=== PATIENT | male | born 1965 | race Caucasian/White ===

== ENCOUNTER 2016-11-02 04:51 | Observation (INO) | payer BC ==
[2016-11-02] MEDS ORDERED: NS 0.9% 1000 ML* 1,000 ML IV ONE ×2 (05:03→08:12)
[2016-11-02] MEDS ORDERED: Diltiazem IV* 5 MG/ML 5 ML VIAL (for loading dose/IV Push) (25 MG) IV PUSH ONE (05:03)
[2016-11-02 05:32] LABS: Hematocrit 49 % (42-52); Hemoglobin 16.5 g/dl (14.0-18.0); Mean Corpuscular HGB Conc 34 g/dl (31-36); Mean Corpuscular Hemoglobin 30 pg (27-31); Mean Corpuscular Volume 89 fL (80-94); Mean Platelet Volume 8 um3 (7.4-10.4); Red Blood Count 5.48 10^6/ul (4.0-5.4); Red Cell Distribution Width 14 % (10.5-15); White Blood Count 7.4 10^3/ul (3.5-10.8)
--- NOTE | 2016-11-02 05:46 | ED ---
denita Carmichael Timothy, scribed for Gerardo Nunez MD on 11/02/16 at 0511 . Palpitations / Dysrhythmia - HPI Summary HPI Summary: Hu Coates is a 51 yo male presenting to [facility] with irregular heart beat since 0400 this am. He has a Hx of Afib x2, most recently October 05 2014, before that in 2007. He states he does not know what caused his Sx. He is not in any current pain. His MHx includes paroxysmal Afib, CAD, HLD, HTN, GERD, hiatal hernia, arthritis, tendonitis. His PCP is Dr. Chapman in [place]. - History of Current Complaint Time Seen by Provider: 11/02/16 05:06 Hx Obtained From: Patient Onset/Duration: Sudden Onset, Lasting Minutes, Still Present Timing: Constant Severity Initially: Moderate Severity Currently: Moderate Character: Fast, Irregular Aggravating: Rest - Allergy/Home Medications Allergies/Adverse Reactions: Allergies Allergy/AdvReac Type Severity Reaction Status Date / Time ENVIRONMENTAL/SEASONAL Allergy Mild Sneezing Uncoded 11/02/16 05:34 HAYFEVER PMH/Surg Hx/FS Hx/Imm Hx Cardiovascular History: Reports: Hx Coronary Artery Disease - CHOLESTEROL CONTROL WITH MEDICATION, Hx Hypercholesterolemia, Hx Hypertension - ON MEDS Denies: Hx Angina, Hx Pacemaker/ICD Respiratory History: Denies: Hx Asthma, Hx Chronic Obstructive Pulmonary Disease (COPD) GI History: Reports: Hx Gastroesophageal Reflux Disease - HX BEFORE SURGERY FOR HIATAL HERNIA, Hx Hiatal Hernia - HX OF Musculoskeletal History: Reports: Hx Arthritis - RIGHT THUMB, Hx Tendonitis - HX OF RIGHT ELBOW - REPAIRED WITH SURGERY Sensory History: Reports: Hx Contacts or Glasses - DRIVING GLASSES Denies: Hx Hearing Aid Opthamlomology History: Reports: Hx Contacts or Glasses - DRIVING GLASSES Psychiatric History: Denies: Hx Panic Disorder - Surgical History Surgery Procedure, Year, and Place: 1997 HIATAL HERNIA REPAIR, [id number] RIGHT ELBOW TENNIS ELBOW SURGERY, [id number] LEFT KNEE ACL RECONSTRUCTION, [facility], rt thumb joint fusion 2012 and hardware removal in 2013 Hx Anesthesia Reactions: No Infectious Disease History: No Infectious Disease History: Denies: Traveled Outside the [place] in Last 30 Days - Family History Known Family History: Negative: Cardiac Disease, Hypertension, Diabetes - Social History Alcohol Use: Rare Substance Use Type: Reports: None Smoking Status (MU): Former Smoker Type: Cigarettes Amount Used/How Often: 1/2 PACK/DAY Length of Time of Smoking/Using Tobacco: 10 YEARS Have You Smoked in the Last Year: Yes Review of Systems Constitutional: Negative Eyes: Negative ENT: Negative Positive: Palpitations Respiratory: Negative Gastrointestinal: Negative Genitourinary: Negative Musculoskeletal: Negative Skin: Negative Neurological: Negative Psychological: Normal All Other Systems Reviewed And Are Negative: Yes Physical Exam Triage Information Reviewed: Yes Vital Signs On Initial Exam: Initial Vitals Temp Pulse Resp BP Pulse Ox 98.9 F 151 20 163/115 98 11/02/16 04:58 11/02/16 04:58 11/02/16 04:58 11/02/16 04:58 11/02/16 04:58 Vital Signs Reviewed: Yes Appearance: Positive: Well-Appearing - anxious Skin: Positive: Warm Head/Face: Positive: Normal Head/Face Inspection Eyes: Positive: JAYLEN ENT: Positive: Hearing grossly normal Neck: Positive: Supple Respiratory/Lung Sounds: Positive: Breath Sounds Present Cardiovascular: Positive: IRR, Tachycardia Abdomen Description: Positive: Nontender, Soft Bowel Sounds: Positive: Present Musculoskeletal: Positive: Strength/ROM Intact. Negative: Edema Left, Edema Right Neurological: Positive: Sensory/Motor Intact, Alert, Oriented to Person Place, Time, Normal Gait Diagnostics - Vital Signs Vital Signs Temp Pulse Resp BP Pulse Ox 11/02/16 04:58 98.9 F 151 20 163/115 98 - Laboratory Lab Results: Lab Results 11/02/16 Range/Units 05:07 WBC 7.4 (3.5-10.8) 10^3/ul RBC 5.48 H (4.0-5.4) 10^6/ul Hgb 16.5 (14.0-18.0) g/dl Hct 49 (42-52) % MCV 89 (80-94) fL MCH 30 (27-31) pg MCHC 34 (31-36) g/dl RDW 14 (10.5-15) % Plt Count 166 (150-450) 10^3/ul MPV 8 (7.4-10.4) um3 Neut % (Auto) 57.9 (38-83) % Lymph % (Auto) 29.0 (25-47) % Winston % (Auto) 9.1 H (1-9) % Eos % (Auto) 3.4 (0-6) % Baso % (Auto) 0.6 (0-2) % Absolute Neuts (auto) 4.3 (1.5-7.7) 10^3/ul Absolute Lymphs (auto) 2.1 (1.0-4.8) 10^3/ul Absolute Monos (auto) 0.7 (0-0.8) 10^3/ul Absolute Eos (auto) 0.3 (0-0.6) 10^3/ul Absolute Basos (auto) 0 (0-0.2) 10^3/ul Absolute Nucleated RBC 0 10^3/ul Nucleated RBC % 0 Result Diagrams: 11/02/16 05:07 11/02/16 05:07 Lab Statement: Any lab studies that have been ordered have been reviewed, and results considered in the medical decision making process. - EKG 0500 Cardiac Rate: Tachycardia - 160 BPM EKG Interpretation: Afib @ 160 BPM, rapid response Re-Evaluation - Re-Evaluation First Eval Re-Evaluation Time: 05:20 Change: Improved Course/Dx - Course Assessment/Plan: Hu Coates is a 51 yo male presenting to [facility] with palpiations since 0400 this am with a Hx of Afib. In the ED he received IV fluids and diltiazem. His EKG showed Afib with rapid response. After clinical examination and review of his lab work, he will be signed out to Dr. Edwards pending further evaluation and work up. - Diagnoses Provider Diagnoses: Atrial fibrillation with RVR - Physician Notifications Instructed by Provider To: Admit As Inpatient Discharge - Discharge Plan Condition: Stable Disposition: ADMITTED TO [facility] Discharge Disposition Comment: signed out to Dr. Edwards for further evaluation The documentation as recorded by the denita cortez Timothy accurately reflects the service I personally performed and the decisions made by , Gerardo Nunez MD.
[2016-11-02 05:48] LABS: Albumin 4.3 g/dL (3.2-5.2); BUN/Creatinine Ratio 24.1 (8-20); Calcium 9.4 mg/dL (8.6-10.3); EGFR African American 93.1 (>60); EGFR Non-African American 72.4 (>60); Globulin 3.3 g/dL (2-4); Total Bilirubin 0.6 mg/dL (0.2-1.0); Total Protein 7.6 g/dL (6.4-8.9)
[2016-11-02 06:09] LABS: TSH (Thyroid Stimulating Horm) 1.96 mcIU/mL (0.34-5.60)
[2016-11-02 06:20] LABS: Potassium 4.3 mmol/L (3.5-5.0)
[2016-11-02 06:34] LABS: Magnesium 2.2 mg/dL (1.9-2.7)
[2016-11-02] MEDS ORDERED: Diltiazem IV VIAL* 125 MG in D5W 100 ML BAG* 100 ML IV ONE (08:11)
[2016-11-02] MEDS ORDERED: Metoprolol Tartrate TAB* 25 MG PO SCH (09:00)
--- NOTE | 2016-11-02 09:02 | RAD ---
HISTORY: Atrial fibrillation COMPARISONS: October 05, 2014 VIEWS:1: Single frontal portable view of the chest at 8:30 AM FINDINGS: LINES AND TUBES: None. CARDIOMEDIASTINAL SILHOUETTE: The cardiomediastinal silhouette is normal for portable technique. PLEURA: The costophrenic angles are sharp. No pleural abnormalities are noted. LUNG PARENCHYMA: The lungs are clear. ABDOMEN: The upper abdomen is clear. There is no subphrenic gas. BONES AND SOFT TISSUES: No bone or soft tissue abnormalities are noted. IMPRESSION: NO ACTIVE CARDIOPULMONARY DISEASE.
--- NOTE | 2016-11-02 11:05 | ED ---
Nohemy Carmichael Matthew, scribed for Dinesh Edwards MD on 11/02/16 at 0721 . Progress - Progress Note Progress Note: The patient is a sign out from Dr. 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 The patient gets palpitations intermittently and has had three episodes that required conversion. He's currently not taking blood thinners. No Hx of COPD. The patient is a former smoker. The patient is in stable condition and will be admitted by Dr. Marmolejo [place] [facility] VITAL SIGNS: Reviewed. GENERAL: Patient is a well developed and nourished male who is lying comfortable in the stretcher. Patient is not in any acute respiratory distress. HEAD AND FACE: No signs of trauma. No ecchymosis, hematomas or skull depressions. No sinus tenderness. EYES: PERRLA, EOMI x 2, No injected conjunctiva, no nystagmus. EARS: Hearing grossly intact. Ear canals and tympanic membranes are within normal limits. MOUTH: Oropharynx within normal limits. NECK: Supple, trachea is midline, no adenopathy, no JVD, no carotid bruit, no c- spine tenderness, neck with full ROM. CHEST: Symmetric, no tenderness at palpation LUNGS: Clear to auscultation bilaterally. No wheezing or crackles. CVS: Irregular rate and rhythm, S1 and S2 present, no murmurs or gallops appreciated. ABDOMEN: Soft, non-tender. No signs of distention. No rebound no guarding, and no masses palpated. Bowel sounds are normal. EXTREMITIES: FROM in all major joints, no edema, no cyanosis or clubbing. NEURO: Alert and oriented x 3. No acute neurological deficits. Speech is normal and follows commands. SKIN: Dry and warm - Results/Orders Results/Orders: CXR IMPRESSION: NO ACTIVE CARDIOPULMONARY DISEASE. 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 The patient gets palpitations intermittently and has had three episodes that required conversion. He's currently not taking blood thinners. No Hx of COPD. The patient is a former smoker. Blood work WNL except for BUN of 26 , and glucose 112. Troponin of 0.00 and the 2nd troponin also 0.00. Initially the patient was give cardizem bolus and decreased to 100 bpm still in Afib. A few minutes later, his HR increased to 125-145 and the patient was placed on a cardizem IV drip. He was also given more IV fluids for better rate control. CXR shows no acute cardiopulmonary disease. At this point, I discussed the case with Dr. Marmolejo who accepted the patient for admission. The patient is A&Ox3 and hemodynamically stable. - Diagnoses Provider Diagnoses: Atrial fibrillation with RVR - Provider Notifications Discussed Care Of Patient With: Dr. Marmolejo (Hospitalist) at 08:14 -- Notified of patient's history and will admit the patient into his services. The documentation as recorded by the Nohemy cortez Matthew accurately reflects the service I personally performed and the decisions made by me, Dinesh Edwards MD.
[2016-11-02] MEDS ORDERED: Acetaminophen TAB* 325 MG PO PRN (11:55)
[2016-11-02 12:04] VITALS: BP 143/88
[2016-11-02 12:26] LABS: HDL Cholesterol 49.6 mg/dL
--- NOTE | 2016-11-02 14:23 | HP ---
HISTORY AND PHYSICAL: DATE OF ADMISSION: 11/02/16 PRIMARY CARE PHYSICIAN: Dr. Nabil Dupont. MOTOR VEHICLE TECHNICIAN: Dr. Wren. ATTENDING PHYSICIAN: Dr. Toño Marmolejo*, (dictation provided by Rekha Valadez NP) CHIEF COMPLAINT: "Weird" feeling in his chest and palpitations. HISTORY OF PRESENT ILLNESS: Mr. Coates is a 51-year-old male with a past medical history of paroxysmal atrial fibrillation, who presented to the hospital today with concern for palpitations and "weird" feeling in his chest. Mr. Coates states he has been in his normal state of health. He has been working out for sometime doing [employer]. With [employer], he has lots of aches and pains, but not discretely noted chest pain or significant unexpected shortness of breath. He was feeling well yesterday. When he got up to go to work early this morning at 2:30, he was feeling okay. He is to be at work by 3: 30. By approximately 4:15, he was drinking some water when he had a sudden onset of a weird feeling in his chest followed by palpitations. He palpated his pulse and noted that it was irregular. He immediately came to the emergency room as he recognized he was likely in atrial fibrillation. In the emergency room he was confirmed to be in atrial fibrillation with a rapid heart rate of about 110 to 120. He was started on a Cardizem drip and transitioned to the floor. Shortly after arrival to the floor, he converted to sinus bradycardia. Despite the transition back into sinus rhythm, the patient continued to have this wired feeling in his chest, which he describes as a discomfort to the mid right center of his chest. He denies any associated symptoms of shortness of breath, diaphoresis, or nausea. He cannot remember having this feeling in the past. He states that he drinks alcohol only very rarely. He drinks caffeine about once per week. PAST MEDICAL HISTORY: 1. Atrial fibrillation. 2. Hyperlipidemia. The patient does have a history of paroxysmal atrial fibrillation, he reports 2 previous episodes one in 2007 and one is 2014. For the episode in 2007, he had no awareness of any triggers. For the episode of 2014, he thought it was triggered by dehydration, stress, and electrolyte abnormalities. MEDICATIONS: 1. Naproxen 250 mg 1 tab p.o. b.i.d. 2. Niacin 1500 mg p.o. at bedtime. 3. Diltiazem ER 120 mg p.o. at bedtime. ALLERGIES: No known drug allergies. FAMILY HISTORY: The patient's mother is well and alive and she is at the bedside today. He reports a history of early heart disease in grandparents, but does not know the exact details. SOCIAL HISTORY: The patient quit smoking 2 years ago. There is no report of significant alcohol use. No report of drug use. The patient lives with his female friend, Rhea who is his healthcare proxy. REVIEW OF SYSTEMS: A 14-point review of systems was completed with Mr. Coates today. All those not mentioned above were negative. PHYSICAL EXAMINATION GENERAL: Mr. Coates is sitting in the bed. He is in no acute distress. He is calm and cooperative with my examination. VITAL SIGNS: Heart rate 54, respiratory rate 18, O2 saturation 97% on room air , and blood pressure 115/73. HEENT: Extraocular movements are intact. LUNGS: Clear to auscultation bilaterally with no accessory muscle use and good aeration. HEART: S1 and S2. No murmur, rub, or gallop, irregular. ABDOMEN: Soft and nontender with bowel sounds positive x4. EXTREMITIES: No cyanosis or edema. SKIN: Intact. NEUROLOGIC: He is alert and oriented x3. He moves all extremities equally. There is no facial asymmetry or focal weakness. LABORATORY DATA: Sodium 136, potassium 4.3, chloride 104, serum bicarbonate 24 , BUN 26, creatinine 1.08, glucose 112. Lactic acid 1.3. First and second troponin are both 0.00. TSH is 1.96. WBC 7.4, hemoglobin 16.5, hematocrit 49, platelet count 166. Chest x-ray shows no active cardiopulmonary disease. EKG on arrival shows atrial fibrillation with a heart rate of 160. Repeat EKG at about 11:15 shows sinus bradycardia. No evidence of ischemia. ASSESSMENT: Mr. Coates is a 51-year-old male with a past medical history of paroxysmal atrial fibrillation and hyperlipidemia who presents today to the hospital with concerns for palpitations and rapid heart rate, found to have AFib with RVR. In addition to this, he has a chest discomfort despite resolution of his AFib. PLAN/RECOMMENDATIONS: As follows: 1. Atrial fibrillation. The patient has converted to sinus bradycardia. Plan to continue his Cardizem. I am considering increasing him from 120 to 180 mg at bedtime to give him a little bit better rate control. This would be depending on his heart rate and blood pressure as the day goes on to see whether he can tolerate that or not. He has a CHADS2 VASC score of 0 and therefore does not need anticoagulation. 2. Chest discomfort: The patient has had 2 previous stress tests one in 2007 and one is 2014 both of which were negative. He also participates with [employer] without any overt chest pain symptoms or unexpected shortness of breath. I worry, however, because he is still feeling this odd sensation in his chest despite resolution of his atrial fibrillation. Fortunately, I have an opportunity to give an exercise stress test today and I plan to do this this afternoon once the third troponin returns as long as that are negative. 3. Hyperlipidemia. Continue home niacin. 4. DVT prophylaxis with early mobility. DISPOSITION: To telemetry floor. CODE STATUS: Full code. The patient will be OBV. TIME SPENT: Approximately 60 minutes were spent in the admission of his patient , more than half the time spent with the patient at the bedside reviewing events leading to this hospitalization, performing the physical examination, and reviewing the plan of care. REKHA VALADEZ NP CC: Dr. Wren; Dr. Nabil Dupont* [id number]/[facility] #: [id number] ANDRES
--- NOTE | 2016-11-02 15:11 | PN ---
Progress Note - Progress Note Note: Mr. Coates has returned from his exercise stress test which was found to be negative with no EKG changes noted. Pt is feeling well and has remained in a sinus bradycardia since he converted earlier today. Given that he is bradycardic, do not plan to increase cardizem. Again, no anticoagulation is indicated because his CHADS-Vasc2 is 0. Patient will be following up with Dr. Wren early next week. Physical examination is unchanged. Discharge to home.
[2016-11-02] MEDS ORDERED: Diltiazem CD CAP* 120 MG PO SCH (21:00)
[2016-11-02] MEDS ORDERED: Diltiazem CD CAP* 180 MG PO SCH (21:00)
--- NOTE | 2016-11-03 12:55 | DS ---
DISCHARGE SUMMARY: DATE OF ADMISSION: 11/02/16 DATE OF DISCHARGE: 11/02/16 PRIMARY CARE PHYSICIAN: Dr. Dupont. ATTENDING PHYSICIAN: Dr. Oc Marmolejo* (dictation provided by Rekha Valadez NP). PRIMARY DIAGNOSES: 1. Paroxysmal atrial fibrillation with rapid ventricular response, now resolved. 2. Chest pain, atypical. SECONDARY DIAGNOSIS: Hyperlipidemia. MEDICATIONS AT THE TIME DISCHARGE: 1. Niacin 1500 mg p.o. at bedtime. 2. Diltiazem ER 120 mg p.o. at bedtime. 3. Naproxen 250 mg p.o. b.i.d. HOSPITAL COURSE: Mr. Coates is a 51-year-old male with past medical history of paroxysmal atrial fibrillation, hyperlipidemia, who presented to the hospital on 11/02/16 with concern for rapid heart rate and odd sensation in his chest. Please see the dictated H and P from myself for complete details. In brief, the patient was found to be in atrial fibrillation with a rapid ventricular response. He was placed on the telemetry unit on Cardizem drip. Mr. Coates quickly converted to a sinus bradycardia with heart rate in the 50s. He continued to have an odd sensation in his chest and therefore went on for an exercise stress test after having three troponins, which were all 0 and an EKG which showed no evidence of ischemia. Exercise stress test showed no abnormality. No EKG changes elicited, no pain. The patient had good exercise level during the test. Mr. Coates is feeling quite well now and is eager for discharge to home. I see no reason why he had this episode of atrial fibrillation. He does not binge drink of alcohol. He drinks out caffeine only like once per week. His electrolytes were normal. I am encouraging him to follow up with Dr. Wren regarding evaluation for possible medications to control AFib though this has only been his third episode in his life. DISPOSITION: Home. DIET: Heart healthy, limited caffeine. ACTIVITY: As tolerated. FOLLOWUP PLANS: Please follow up with Dr. Wren. The patient will call on Saturday for an appointment. TIME SPENT: Approximately 45 minutes was spent on discharge of this patient; more than half the time was spent with the patient at the bedside reviewing the events leading up to this hospitalization, performing the physical examination, and reviewing the plan of care. REKHA VALADEZ NP CC: Dr. Wren; Dr. Dupont* [id number]/[facility] #: [id number] MTDD
== END 2016-11-02 15:41 | disposition home or self-care (01) ==
LOC: ED 04:51 → MEDTELE 08:17
PROVIDERS: ADMIT Internal Medicine; ATTEND Internal Medicine
DX: I48.0 Paroxysmal atrial fibrillation (principal); R07.89 Other chest pain; Z79.899 Other long term (current) drug therapy; Z87.891 Personal history of nicotine dependence
CPT/HCPCS: 36415; 71010; 80053; 80061; 83605; 83735; 84443; 84484; 85025; 93005; 96361; 96374; 99283; G0378

== ENCOUNTER 2016-12-05 15:44 | Observation (INO) | payer BC ==
[2016-12-05] MEDS ORDERED: NS 0.9% 1000 ML* 1,000 ML IV ONE (16:02)
[2016-12-05] MEDS ORDERED: Diltiazem IV VIAL* 125 MG in D5W 100 ML BAG* 100 ML IV ONE ×5 (16:03→16:56)
[2016-12-05] MEDS ORDERED: Diltiazem IV VIAL* 125 MG/25 ML VIAL ONE (16:12)
[2016-12-05] MEDS ORDERED: Diltiazem DRIP* 100 MG/100 ML ADDV.BAG IVPB ONE (16:16)
[2016-12-05] MEDS ORDERED: Diltiazem IV* 5 MG/ML 5 ML VIAL (for loading dose/IV Push) (25 MG) ONE (16:17)
--- NOTE | 2016-12-05 16:22 | RAD ---
Indication: Chest pain. Atrial fibrillation. Hypertension. Comparison: No relevant prior exams available on the [facility] PACS for comparison. Technique: Upright AP 1603 hours Report: Clear lungs and pleural spaces. Negative for pneumothorax. The heart, pulmonary vasculature, and mediastinal contours are unremarkable. Innumerable epigastric and LEFT upper quadrant surgical clips corresponding with previous hiatal hernia repair. IMPRESSION: No evidence for acute intrathoracic disease.
[2016-12-05] MEDS ORDERED: Diltiazem IV* 5 MG/ML 5 ML VIAL (for loading dose/IV Push) (25 MG) IV SLOW PU ONE (16:34)
[2016-12-05] MEDS ORDERED: Aspirin Low Dose CHEW TAB* 81 MG ONE (16:45)
[2016-12-05] MEDS ORDERED: Nitroglycerin TAB 0.4 MG* 0.4 MG TAB ONE (16:45)
[2016-12-05 17:20] LABS: Hematocrit 46 % (42-52); Hemoglobin 15.6 g/dl (14.0-18.0); Mean Corpuscular HGB Conc 34 g/dl (31-36); Mean Corpuscular Hemoglobin 30 pg (27-31); Mean Corpuscular Volume 89 fL (80-94); Mean Platelet Volume 8 um3 (7.4-10.4); Red Cell Distribution Width 14 % (10.5-15); White Blood Count 8.9 10^3/ul (3.5-10.8)
[2016-12-05 17:35] LABS: Albumin 4.2 g/dL (3.2-5.2); BUN/Creatinine Ratio 16.8 (8-20); C Reactive Protein 2.12 mg/L (< 5.00); Calcium 9.7 mg/dL (8.6-10.3); EGFR African American 88.3 (>60); EGFR Non-African American 68.7 (>60); Globulin 3.1 g/dL (2-4); Potassium 3.9 mmol/L (3.5-5.0); Total Bilirubin 0.6 mg/dL (0.2-1.0); Total Protein 7.3 g/dL (6.4-8.9)
[2016-12-05] MEDS ORDERED: Diltiazem DRIP* 100 MG/100 ML ADDV.BAG IVPB SCH (18:00)
--- NOTE | 2016-12-05 18:05 | ED ---
Nohemy Carmichael Matthew, scribed for Dinesh Edwards MD on 12/05/16 at 1613 . Palpitations / Dysrhythmia - HPI Summary HPI Summary: A 51 y/o male presents to the ED with sudden, constant palpitations since 14: 45. Associated symptoms include SOB, nausea, and dizziness. The patient denies chest pain. The patient has also been fighting a general illness for the past week and half. He as a Hx of Afib and was seen approximately a month ago. The patient is not a blood thinners. He takes an aspirin daily. He does not smoke. No Hx of COPD. - History of Current Complaint Chief Complaint: EDDysrhythmPalp Time Seen by Provider: 12/05/16 16:01 Hx Obtained From: Patient Onset/Duration: Sudden Onset, Lasting Hours, Still Present Timing: Constant Severity Initially: Moderate Severity Currently: Moderate Character: Fast, Irregular Aggravating: Nothing Alleviating: Nothing Associated Signs & Symptoms: Dizzy, Shortness of Breath, Nausea - Allergy/Home Medications Allergies/Adverse Reactions: Allergies Allergy/AdvReac Type Severity Reaction Status Date / Time ENVIRONMENTAL/SEASONAL Allergy Mild Sneezing Uncoded 12/05/16 15:45 HAYFEVER Home Medications: Home Medications Albuterol HFA INHALER* [Ventolin HFA Inhaler*] 1 puff INH Q6H PRN 12/05/16 [ History Confirmed 12/05/16] DOXYcycline CAP(*) [DOXYcycline 100MG CAP(*)] 100 mg PO BID 12/05/16 [History Confirmed 12/05/16] Diltiazem HCl Coated Beads [Cartia Xt] 120 mg PO BEDTIME 12/05/16 [History Confirmed 12/05/16] Naproxen TAB* [Naprosyn 250 mg TAB*] 500 mg PO BID 12/05/16 [History Confirmed 12/05/16] Niacin ER TAB* [Niaspan ER TAB*] 1,500 mg PO BEDTIME 12/05/16 [History Confirmed 12/05/16] PMH/Surg Hx/FS Hx/Imm Hx Cardiovascular History: Reports: Hx Coronary Artery Disease - CHOLESTEROL CONTROL WITH MEDICATION, Hx Hypercholesterolemia, Hx Hypertension - ON MEDS Denies: Hx Angina, Hx Myocardial Infarction, Hx Pacemaker/ICD, Hx Valvular Heart Disease Respiratory History: Denies: Hx Asthma, Hx Chronic Obstructive Pulmonary Disease (COPD) GI History: Reports: Hx Gastroesophageal Reflux Disease - HX BEFORE SURGERY FOR HIATAL HERNIA, Hx Hiatal Hernia - HX OF Musculoskeletal History: Reports: Hx Arthritis - RIGHT THUMB, Hx Tendonitis - HX OF RIGHT ELBOW - REPAIRED WITH SURGERY Sensory History: Reports: Hx Contacts or Glasses - DRIVING GLASSES Denies: Hx Hearing Aid Opthamlomology History: Reports: Hx Contacts or Glasses - DRIVING GLASSES Psychiatric History: Denies: Hx Panic Disorder - Surgical History Surgery Procedure, Year, and Place: 1997 HIATAL HERNIA REPAIR, [id number] RIGHT ELBOW TENNIS ELBOW SURGERY, [id number] LEFT KNEE ACL RECONSTRUCTION, [facility], rt thumb joint fusion 2012 and hardware removal in 2013 Hx Anesthesia Reactions: No Infectious Disease History: No Infectious Disease History: Denies: Traveled Outside the [place] in Last 30 Days - Family History Known Family History: Negative: Cardiac Disease, Hypertension, Diabetes - Social History Alcohol Use: Rare Substance Use Type: Reports: None Smoking Status (MU): Former Smoker Type: Cigarettes Amount Used/How Often: 1/2 PACK/DAY Length of Time of Smoking/Using Tobacco: 10 YEARS Have You Smoked in the Last Year: Yes Review of Systems Constitutional: Negative Eyes: Negative ENT: Negative Positive: Palpitations. Negative: Chest Pain Respiratory: Negative Positive: Nausea Genitourinary: Negative Musculoskeletal: Negative Skin: Negative Neurological: Other - Dizziness Psychological: Normal All Other Systems Reviewed And Are Negative: Yes Physical Exam - Summary Physical Exam Summary: VITAL SIGNS: Reviewed. GENERAL: Patient is a well developed and nourished male who is lying comfortable in the stretcher. Patient is not in any acute respiratory distress. HEAD AND FACE: No signs of trauma. No ecchymosis, hematomas or skull depressions. No sinus tenderness. EYES: PERRLA, EOMI x 2, No injected conjunctiva, no nystagmus. EARS: Hearing grossly intact. Ear canals and tympanic membranes are within normal limits. MOUTH: Oropharynx within normal limits. NECK: Supple, trachea is midline, no adenopathy, no JVD, no carotid bruit, no c- spine tenderness, neck with full ROM. CHEST: Symmetric, no tenderness at palpation LUNGS: Clear to auscultation bilaterally. No wheezing or crackles. CVS: Irregular rate and rhythm, S1 and S2 present, no murmurs or gallops appreciated. ABDOMEN: Soft, non-tender. No signs of distention. No rebound no guarding, and no masses palpated. Bowel sounds are normal. EXTREMITIES: FROM in all major joints, no edema, no cyanosis or clubbing. NEURO: Alert and oriented x 3. No acute neurological deficits. Speech is normal and follows commands. SKIN: Dry and warm Triage Information Reviewed: Yes Vital Signs On Initial Exam: Initial Vitals Temp Pulse Resp BP Pulse Ox 97.5 F 91 18 151/90 99 12/05/16 15:47 12/05/16 15:47 12/05/16 15:47 12/05/16 15:47 12/05/16 15:47 Vital Signs Reviewed: Yes Diagnostics - Vital Signs Vital Signs Temp Pulse Resp BP Pulse Ox 12/05/16 15:47 97.5 F 91 18 151/90 99 - Laboratory Result Diagrams: 12/05/16 16:55 12/05/16 16:55 Lab Statement: Any lab studies that have been ordered have been reviewed, and results considered in the medical decision making process. - Radiology CXR Xray Interpretation: No Acute Changes - IMPRESSION: No evidence for acute intrathoracic disease. Radiology Interpretation Completed By: Radiologist - EKG 15:52 Cardiac Rate: Tachycardia - 154 bpm EKG Rhythm: Atrial Fibrillation EKG Interpretation: RVR 2nd Cardiac Rate: Tachycardia - 120 bpm EKG Rhythm: Atrial Fibrillation EKG Interpretation: No ST elevation Course/Dx - Course Assessment/Plan: A 51 y/o male presents to the ED with sudden, constant palpitations since 14:45. Associated symptoms include SOB, nausea, and dizziness. The patient denies chest pain. The patient has also been fighting a general illness for the past week and half. He as a Hx of Afib and was seen approximately a month ago. The patient is not a blood thinners. He takes an aspirin daily. He does not smoke. No Hx of COPD. Test results WNL. CXR shows no acute pathology. EKG shows AFib with RVR. In the ED course, the patient was started IV access, IV fluids, Cardizem bolus and drip. At this point, the HR is 120 bpm and the patient feels better. I was informed by the nurse that the patient had an episode of chest pian. We did a second EKG, which shows AFib at [address] elevation. Patient was given aspirin and NTG and the symptoms improved. I discussed my physical exam findings and test results with Dr. Menjivar who accepted the patient for admission. The patient is hemodynamically stable and A&Ox3. - Diagnoses Differential Diagnosis/HQI/PQRI: Positive: Other - A. fib w/ RVR Provider Diagnoses: Atrial fibrillation with RVR, Chest pain - Physician Notifications Discussed Care Of Patient With: Dr. Menjivar (Hospitalist) at 17:30 -- Notified of patient's history and will admit the patinet into his services. Discharge - Discharge Plan Condition: Stable Disposition: ADMITTED TO [facility] Referrals: Nabil Dupont MD [Primary Care Provider] - The documentation as recorded by the Nohemy cortez Matthew accurately reflects the service I personally performed and the decisions made by me, Dinesh Edwards MD.
[2016-12-05] MEDS ORDERED: Albuterol HFA INHALER* 8 gm MDI INH PRN (18:15)
[2016-12-05] MEDS ORDERED: NS 0.9% 1000 ML* 1,000 ML IV SCH (18:15)
[2016-12-05] MEDS: Diltiazem DRIP* 100 MG/100 ML ADDV.BAG IVPB SCH (18:31)
[2016-12-05] MEDS ORDERED: Niacin ER TAB* 500 MG PO SCH (21:00)
[2016-12-05] MEDS: Naproxen TAB* 250 MG PO SCH (21:02)
[2016-12-05] MEDS: DOXYcycline CAP(*) 100 MG PO SCH (21:02)
--- NOTE | 2016-12-05 22:10 | HP ---
HISTORY AND PHYSICAL: DATE OF ADMISSION: 12/05/16 PRIMARY CARE PROVIDER: Nabil Dupont MD. ATTENDING PHYSICIAN: Pepe Menjivar MD* (dictated by Elsie Rendon NP). CHIEF COMPLAINT: Chest discomfort with associated palpitations, shortness of breath, nausea, and dizziness. HISTORY OF PRESENT ILLNESS: Mr. Coates is a 51-year-old male with past medical history significant for paroxysmal atrial fibrillation, hyperlipidemia, and obstructive sleep apnea, who presented to the emergency room today with concerns for palpitations, chest discomfort, dizziness, shortness of breath, and nausea. Mr. Coates states that he has recently been fighting a cold and was treated at Urgent Care on November 27 and started on doxycycline twice daily for his upper respiratory illness. Mr. Coates states that he had been outside all day in the heat and had not had much to drink. He then "chugged" ice cold water when he noticed he developed chest discomfort and palpitations at approximately 3:30 p.m. today. He states that he noticed that his heart rate was up and was elevated and when he checked his pulse, he confirmed that he also had somebody else check his pulse to confirm that it was elevated. He denies caffeine use. He was specifically questioned regarding tea, coffee, and soda. The patient was just hospitalized for a similar episode on November 02, at which time he also had ice cold water when he had the similar symptoms start. During that time, the patient presented to the emergency room, was found to have a heart rate of about 110 to 120. He was started on a Cardizem drip and sent to the floor. The patient converted to a sinus bradycardia. The patient continued to have a chest discomfort located on his right center chest. He underwent a cardiac stress test. The patient also had troponins trended, they were all 0. He had no evidence of ischemia on EKG. The patient's exercise stress test showed no abnormalities. The patient was sent to follow up with Dr. Wren as an outpatient. The patient denies excessive alcohol use and only drinks alcohol occasionally. His electrolytes are all within normal limits. The patient decided to present to the emergency room for further evaluation of his symptoms. While in the emergency room, the patient received IV bolus of diltiazem. When he received his IV bolus of diltiazem, he developed chest discomfort, this has since resolved. The patient also received a liter of normal saline and was started on diltiazem drip. The patient's heart rate has been in the one teens to the 160s during his time in the emergency room. The patient had an EKG showing atrial fibrillation with a rate of 154 on arrival and a repeat EKG during his chest discomfort showing atrial fibrillation with a rate of 128. The patient underwent a chest x-ray showing no intrathoracic disease. Hospitalists were asked to evaluate the patient for admission. PAST MEDICAL HISTORY: 1. Paroxysmal atrial fibrillation. 2. Hyperlipidemia. 3. Obstructive sleep apnea, uses CPAP at home. PAST SURGICAL HISTORY: 1. Status post posterior tibial tendon repair. 2. Status post left thumb surgery in 2015 with a trapezial resection. 3. Status post hiatal hernia repair in 1995. 4. Status post tennis elbow surgery in 1999. 5. Status post left knee ACL and MCL reconstruction in 1983. 6. Status post right thumb joint fusion in 2012 and 2013. HOME MEDICATIONS: Include: 1. Naproxen 500 mg oral twice daily. 2. Diltiazem 120 mg oral daily at bedtime. 3. Doxycycline 100 mg oral twice daily for 10 days. The patient started taking this on November 27. 4. Albuterol 1 puff inhalation every 6 hours as needed for shortness of breath or wheeze. 5. Niacin 1500 mg oral daily at bedtime. 6. Aspirin 325 mg oral daily. ALLERGIES: ENVIRONMENTAL. FAMILY HISTORY: The patient reports that his grandparents had a history of heart disease, he is unclear of the details. He denies any family history of diabetes mellitus or cancer. SOCIAL HISTORY: The patient is a former smoker. He quit smoking 2 years ago and prior to that smoked half a pack a day for approximately 10 years. The patient occasionally drinks alcoholic beverages. He denies recreational drug use. 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 He lives with his domestic partner, Rhea Knapp, who will be his surrogate decision maker in the event he is unable to make decisions for himself. REVIEW OF SYSTEMS: I performed a 14-point review of systems. All the pertinent positives and negatives are mentioned in the history of present illness. The remaining review of systems are negative. PHYSICAL EXAMINATION GENERAL APPEARANCE: The patient is alert, pleasant, appears to be in no acute distress. VITAL SIGNS: Temperature 97.5, heart rate 127, respiratory rate 22, O2 sat 97% on room air, blood pressure 146/100. HEENT: Normocephalic, atraumatic. Pupils are equal and reactive to light. Extraocular movements are intact. RESPIRATORY: There is no accessory muscle use and the lungs are clear to auscultation bilateral. CARDIOVASCULAR: Irregular rate and rhythm. S1 and S2 are present. There are no murmurs, rubs, or gallops heard. ABDOMEN: Soft, nontender, nondistended. There are bowel sounds present x4. EXTREMITIES: There is no lower extremity edema. DP and PT pulses are 2+ and symmetric. MUSCULOSKELETAL: There is no clubbing or cyanosis noted. The patient exhibits good strength in all extremities. NEUROLOGICAL: The patient is alert and oriented x4. Cranial nerves II through XII are grossly intact. PSYCHOLOGICAL: The patient is calm and cooperative. SKIN: There are no rashes or abnormalities seen. DIAGNOSTIC STUDIES/LAB DATA: Sodium 138, potassium 3.9, chloride 105, CO2 24, BUN 19, creatinine 1.13, glucose 120. Troponin 0.00, magnesium 2.0. White blood cell count 8.9, hemoglobin 15.6, hematocrit 46, and platelet count 220. EKG from 1547 shows atrial fibrillation with a rate of 154. Repeat EKG at 1641 shows atrial fibrillation with a rate of 128. There are no signs of ischemia. This EKG was similar to previous EKGs from 11/02/16. The initial EKG from that day showed an atrial fibrillation. Second EKG from that day did show a sinus bradycardia. Chest x-ray from today. Radiologist's impression: No intrathoracic disease. IMPRESSION: Mr. Coates is a 51-year-old male with past medical history significant for paroxysmal atrial fibrillation, hyperlipidemia, and obstructive sleep apnea who presented to the hospital today with concerns for palpitations with associated chest discomfort, dizziness, and nausea, who was found to have atrial fibrillation with rapid ventricular response. PLAN/RECOMMENDATIONS: 1. Atrial fibrillation with rapid ventricular response. The patient continues to have atrial fibrillation with rapid ventricular response. He is currently on a diltiazem drip. We will write orders for titration for heart rate greater than 110 and less than 80s. The patient's CHADS2-VASc score is 0. He is on full dose aspirin at home that we will continue. This is the patient's fourth episode of atrial fibrillation and his episode in 2007, he was unaware of any triggers. In his episode in 2014, it is felt to be triggered by a combination of dehydration, stress and abnormal electrolytes. The patient's episode in October 2016 had an unclear cause. The patient states that he has been out working in the heat all day and has not been drinking. We will give him a liter of fluids. We will monitor his electrolytes and replace as needed. 2. Chest discomfort. The patient developed chest discomfort with his diltiazem push IV. He states this has resolved. We will trend his troponins. He had a low risk stress test when he was here for his last episode of atrial fibrillation. 3. Hyperlipidemia. He will be continued on his home niacin. 4. Upper respiratory infection. The patient will be continued on his doxycycline that is due to be completed on the . 5. JOSEPH. Continue CPAP use at bedtime. 6. Fluids, electrolytes, and nutrition. The patient will be on a heart- healthy diet. 7. Code status. Full code. 8. DVT prophylaxis. He is at moderate risk. We will encourage him to ambulate and he is on full dose aspirin. If he becomes immobile, we will start him on heparin subcu. 9. Disposition. Observation for atrial fibrillation with rapid ventricular response. TIME SPENT: Time for this admission was 60 minutes, 35 minutes was spent face- to-face with the patient and significant other discussing medications, past medical history and the events leading up to his arrival today and performing a physical examination. The case has been reviewed with the attending, Dr. Menjivar, who agrees with the plan of care. Reviewed by TRINIDAD BENITEZ 12/08/16 1623 CC: Nabil Dupont MD; Dr. Wren * [id number]/[facility] #: [id number] ANDRES
[2016-12-06] MEDS: Diltiazem DRIP* 100 MG/100 ML ADDV.BAG IVPB SCH (00:17)
[2016-12-06] MEDS ORDERED: Diltiazem TAB* 30 MG PO ONE (06:00)
[2016-12-06 06:21] LABS: Calcium 8.7 mg/dL (8.6-10.3); EGFR African American 98.3 (>60); EGFR Non-African American 76.4 (>60); Magnesium 2.2 mg/dL (1.9-2.7); Potassium 4.1 mmol/L (3.5-5.0)
[2016-12-06 06:39] LABS: BUN/Creatinine Ratio 15.5 (8-20)
[2016-12-06] MEDS ORDERED: Aspirin TAB* 325 MG PO SCH (09:00)
--- NOTE | 2016-12-06 09:19 | PN ---
Subjective Date of Service: 12/06/16 Interval History: Mr. Coates states that he is feeling well today. He denies palpitations, chest pain or other complaint. He further denies nausea or abdominal pain. Objective Active Medications: Albuterol (Ventolin Hfa Inhaler*) 1 puff INH Q6H PRN Aspirin (Aspirin Tab*) 325 mg PO DAILY [facility] Doxycycline Hyclate (Vibramycin Cap(*)) 100 mg PO BID [facility] Naproxen (Naprosyn Tab*) 500 mg PO BID [facility] Niacin (Niaspan Er Tab*) 1,500 mg PO BEDTIME [facility] Vital Signs 12/05/16 12/05/16 12/05/16 18:00 18:30 18:54 Temperature Pulse Rate 62 65 Respiratory 15 19 22 Rate Blood Pressure 137/85 149/102 162/79 (mmHg) O2 Sat by Pulse 98 98 Oximetry 12/05/16 12/05/16 12/05/16 19:00 19:15 19:16 Temperature 98.2 F Pulse Rate 145 95 Respiratory 18 20 21 Rate Blood Pressure 133/81 152/68 152/68 (mmHg) O2 Sat by Pulse 97 83 Oximetry 12/05/16 12/05/16 12/05/16 19:30 19:45 20:00 Temperature 98.2 F Pulse Rate 81 114 103 Respiratory 21 19 20 Rate Blood Pressure 151/76 133/64 134/56 (mmHg) O2 Sat by Pulse 97 96 96 Oximetry 12/05/16 12/05/16 12/05/16 20:15 20:30 20:45 Temperature Pulse Rate 99 88 104 Respiratory 20 15 18 Rate Blood Pressure 138/59 137/99 137/85 (mmHg) O2 Sat by Pulse 97 97 96 Oximetry 12/05/16 12/05/16 12/05/16 21:00 21:32 22:00 Temperature Pulse Rate 96 Respiratory 20 15 18 Rate Blood Pressure 129/70 143/79 (mmHg) O2 Sat by Pulse 96 98 Oximetry 12/05/16 12/05/16 12/05/16 22:16 22:51 23:00 Temperature Pulse Rate Respiratory 22 17 17 Rate Blood Pressure 129/60 (mmHg) O2 Sat by Pulse 96 Oximetry 12/06/16 12/06/16 12/06/16 00:00 00:01 00:23 Temperature Pulse Rate Respiratory 15 17 19 Rate Blood Pressure 108/65 (mmHg) O2 Sat by Pulse 95 95 97 Oximetry 12/06/16 12/06/16 12/06/16 01:00 01:28 02:00 Temperature 98.7 F Pulse Rate Respiratory 18 16 Rate Blood Pressure 111/75 114/72 (mmHg) O2 Sat by Pulse 97 96 Oximetry 12/06/16 12/06/16 12/06/16 03:00 04:00 05:00 Temperature 98.0 F Pulse Rate 79 Respiratory 15 17 18 Rate Blood Pressure 123/52 109/60 121/62 (mmHg) O2 Sat by Pulse 96 97 99 Oximetry 12/06/16 12/06/16 12/06/16 06:00 06:54 07:00 Temperature Pulse Rate 51 Respiratory 17 14 17 Rate Blood Pressure 118/57 116/61 (mmHg) O2 Sat by Pulse 96 95 Oximetry 12/06/16 07:26 Temperature 99.2 F Pulse Rate Respiratory Rate Blood Pressure (mmHg) O2 Sat by Pulse Oximetry Oxygen Devices in Use Now: None Appearance: Male lying in bed in NAD Eyes: No Scleral Icterus Ears/Nose/Mouth/Throat: Mucous Membranes Moist Neck: Trachea Midline Respiratory: Symmetrical Chest Expansion and Respiratory Effort, Clear to Auscultation Cardiovascular: NL Sounds; No Murmurs; No JVD, No Edema Abdominal: NL Sounds; No Tenderness; No Distention Lymphatic: No Cervical Adenopathy Extremities: No Edema Skin: No Rash or Ulcers Neurological: Alert and Oriented x 3, NL Muscle Strength and Tone Nutrition: Taking PO's Result Diagrams: 12/05/16 16:55 12/06/16 05:33 Microbiology and Other Data: Microbiology 12/05/16 20:00 Nasal Screen MRSA (PCR)(DANA) - Final Nasal Mrsa Negative Assess/Plan/Problems-Billing Assessment: Mr. Coates is a 51 yo male with a PMH with recent URI on doxycycline and paroxysmal afib who was admitted on 12/05/16 with rapid afib. - Patient Problems (1) Paroxysmal a-fib Comment: Suspect brought on by recent URI. Now back to sinus bradycardia. Plan to continue diltiazem. CHADs score of zero, no need for anticoagulation. (2) URI (upper respiratory infection) Comment: Complete course of doxycycline. (3) JOSEPH (obstructive sleep apnea) Comment: Continue cpap Status and Disposition: Switch to OBV. Discharge to home.
[2016-12-06] MEDS: Naproxen TAB* 250 MG PO SCH (09:27)
[2016-12-06] MEDS: DOXYcycline CAP(*) 100 MG PO SCH (09:27)
[2016-12-06 12:20] VITALS: BP 126/60
[2016-12-06] MEDS ORDERED: Diltiazem CD CAP* 120 MG PO SCH (21:00)
--- NOTE | 2016-12-07 02:09 | DS ---
HOSPITAL MEDICINE DISCHARGE SUMMARY: DATE OF ADMISSION: 12/05/16 DATE OF DISCHARGE: 12/06/16 PRIMARY CARE PHYSICIAN: Dr. Dupont. ATTENDING PHYSICIAN: Dr. Alexis Clark *(dictation provided by Rekha Valadez NP ) PRIMARY DIAGNOSIS: Rapid atrial fibrillation. SECONDARY DIAGNOSES: 1. Obstructive sleep apnea. 2. Recent upper respiratory infection, currently on treatment with doxycycline. MEDICATIONS: At the time of discharge are: 1. Doxycycline 100 mg p.o. b.i.d. 2. Diltiazem CD 120 mg p.o. at bedtime. 3. Aspirin 325 mg p.o. daily. 4. Albuterol p.r.n. 5. Naproxen p.r.n. 6. Niacin ER 1500 mg p.o. at bedtime. HOSPITAL COURSE: Mr. Coates is a 51-year-old male with a past medical history of known paroxysmal atrial fibrillation as well as obstructive sleep apnea, who presented to the hospital on 12/05/16 with concern for palpitations and suspected atrial fibrillation. The patient had reported that he had recently started doxycycline for complaint of an upper respiratory infection. He had been out in the heat and shortly after drinking a large amount of cold water, he developed palpitations and suspected AFib. Interestingly enough, the patient reported that this past episode of AFib was also associated with drinking large amount of cold water very quickly. Regardless, the patient reported palpitations and presented to the ED. In the emergency room, he was confirmed to be in rapid atrial fibrillation and was admitted to the hospital for observation. Mr. Coates was placed on the Cardizem drip in the intensive care unit to titrate that medication, he converted to sinus bradycardia and has remained in sinus bradycardia with the heart rate in the 50s since arrival. He did have some short- lived chest discomfort that was on the right side of his chest, first with the administration of diltiazem and then later in the intensive care unit. His troponins were all normal. He shows no evidence of ischemia on his EKGs and he has had recent workup for chest pain including a stress test on , which showed good exercise tolerance and low-risk Sams score, regular exercise stress test. The patient also reports following with Dr. Wren and had a transthoracic echocardiogram, which showed no acute abnormalities per his report. I suspect that Mr. Coates had paroxysmal episode of atrial fibrillation due to his upper respiratory infection. He feels that his symptoms were brought on by drinking large amounts of cold water and I suggested to him that it would be perfectly reasonable to experiment to see if drinking water less quickly might in fact help with his paroxysmal symptoms. Mr. Coates is medically stable for discharge to home to follow up with Dr. Wren per routine. DISPOSITION: Home. DIET: Regular. ACTIVITY: As tolerated. FOLLOWUP PLANS: 1. Please follow up with Dr. Dupont per routine after this hospitalization. 2. Please follow up with Dr. Wren per routine after repeat episodes of paroxysmal atrial fibrillation. TIME SPENT: Approximately 60 minutes was spent on the discharge of this patient. More than half the time spent with him at the bedside reviewing the events leading up to this hospitalization, performing the physical examination, and reviewing the plan of care. REKHA VALADEZ NP CC: Dr. Dupont* [id number]/[facility] #: [id number] MTDD
== END 2016-12-06 12:00 | disposition home or self-care (01) ==
LOC: ED 15:44 → ICU 17:32
PROVIDERS: ADMIT Hospitalist; ATTEND Internal Medicine
DX: I48.0 Paroxysmal atrial fibrillation (principal); E78.5 Hyperlipidemia, unspecified; G47.33 Obstructive sleep apnea (adult) (pediatric); R06.02 Shortness of breath; Z79.82 Long term (current) use of aspirin; Z79.899 Other long term (current) drug therapy; Z87.891 Personal history of nicotine dependence
CPT/HCPCS: 36415; 71010; 80048; 80053; 82150; 83605; 83690; 83735; 83880; 84484; 85025; 86140; 87641; 93005; 94660; 96374; 96376; 99283; A9270-GY; G0378

== ENCOUNTER 2017-01-14 18:55 | Observation (INO) | payer BC ==
[2017-01-14] MEDS ORDERED: Diltiazem IV* 5 MG/ML 5 ML VIAL (for loading dose/IV Push) (25 MG) IV PUSH ONE (19:16)
[2017-01-14] MEDS ORDERED: Diltiazem IV VIAL* 125 MG in D5W 100 ML BAG* 100 ML IV ONE (19:18)
[2017-01-14] MEDS ORDERED: Diltiazem IV VIAL* 125 MG/25 ML VIAL ONE (19:32)
[2017-01-14 19:33] LABS: Hematocrit 48 % (42-52); Hemoglobin 16.2 g/dl (14.0-18.0); Mean Corpuscular HGB Conc 34 g/dl (31-36); Mean Corpuscular Hemoglobin 31 pg (27-31); Mean Corpuscular Volume 91 fL (80-94); Mean Platelet Volume 8 um3 (7.4-10.4); Red Blood Count 5.31 10^6/ul (4.0-5.4); Red Cell Distribution Width 14 % (10.5-15)
[2017-01-14] MEDS: NS 0.9% 1000 ML* 2,000 ML IV ONE ×2 (19:33→19:34)
[2017-01-14 19:50] LABS: BUN/Creatinine Ratio 19.1 (8-20); Calcium 9.4 mg/dL (8.6-10.3); EGFR African American 86.6 (>60); EGFR Non-African American 67.3 (>60); Globulin 2.9 g/dL (2-4); Magnesium 2.1 mg/dL (1.9-2.7); Total Bilirubin 0.6 mg/dL (0.2-1.0); Total Protein 6.9 g/dL (6.4-8.9)
[2017-01-14 19:57] LABS: Troponin I 0.05 ng/mL (<0.04)
[2017-01-14] MEDS ORDERED: Diltiazem DRIP* 100 MG/100 ML ADDV.BAG IVPB ONE (20:00)
[2017-01-14 20:34] LABS: TSH (Thyroid Stimulating Horm) 3.04 mcIU/mL (0.34-5.60)
[2017-01-14 20:49] LABS: Urine Bilirubin Negative (Negative); Urine Glucose Negative (Negative); Urine Nitrite Negative (Negative)
[2017-01-14] MEDS ORDERED: Nitroglycerin TAB 0.4 MG* 0.4 MG TAB SL ONE (21:25)
[2017-01-14] MEDS ORDERED: Nitroglycerin TAB 0.4 MG* 0.4 MG TAB ONE (21:30)
[2017-01-14] MEDS ORDERED: Morphine INJ* 2 MG/ML 1 ML SYRINGE IV ONE (21:49)
[2017-01-14] MEDS ORDERED: Morphine INJ* 2 MG/ML 1 ML SYRINGE ONE (21:52)
[2017-01-14] MEDS ORDERED: Diltiazem DRIP* 100 MG/100 ML ADDV.BAG IVPB SCH (22:00)
--- NOTE | 2017-01-14 22:15 | ED ---
Rakesh Carmichael Salem, scribed for Steven Ashford MD on 01/14/17 at 1910 . Palpitations / Dysrhythmia - HPI Summary HPI Summary: Patient is a 51 y/o M who presents to ED with palpitations since 1700 today. He states that this is the third time this month that he has had these sx. He also states that he was exercising when sx began and that this is the first time exercise has induced the complaint (the last two were induced by drinking water too quickly). He reports diaphoresis and mild pressure in chest ( described like a touching sensation), but denies SOB, fever, chills, or diarrhea. He states that his normal HR is typically around 50. Pt has a PMHx of A fib, but is on no blood thinners. - History of Current Complaint Chief Complaint: EDDysrhythmPalp Time Seen by Provider: 01/14/17 19:08 Hx Obtained From: Patient Onset/Duration: Gradual Onset, Lasting Hours, Still Present Timing: Constant Severity Initially: Moderate Severity Currently: Moderate Character: Fast, Irregular Aggravating: Exertion Alleviating: Rest Associated Signs & Symptoms: Negative - Allergy/Home Medications Allergies/Adverse Reactions: Allergies Allergy/AdvReac Type Severity Reaction Status Date / Time ENVIRONMENTAL/SEASONAL Allergy Mild Sneezing Uncoded 12/05/16 15:45 HAYFEVER PMH/Surg Hx/FS Hx/Imm Hx Cardiovascular History: Reports: Hx Coronary Artery Disease - HLD, Hx Hypercholesterolemia, Hx Hypertension - ON MEDS Denies: Hx Angina, Hx Myocardial Infarction, Hx Pacemaker/ICD, Hx Valvular Heart Disease Comment Only: Other Cardiovascular Problems/Disorders - Afib. Cardioversion. Respiratory History: Denies: Hx Asthma, Hx Chronic Obstructive Pulmonary Disease (COPD) GI History: Reports: Hx Gastroesophageal Reflux Disease - HX BEFORE SURGERY FOR HIATAL HERNIA, Hx Hiatal Hernia - HX OF Musculoskeletal History: Reports: Hx Arthritis - THUMB, Hx Tendonitis - HX OF RIGHT ELBOW - REPAIRED WITH SURGERY Comment Only: Other Musculoskeletal History - left trapezial resection Sensory History: Reports: Hx Contacts or Glasses - DRIVING GLASSES Denies: Hx Hearing Aid Opthamlomology History: Reports: Hx Contacts or Glasses - DRIVING GLASSES Psychiatric History: Denies: Hx Panic Disorder - Surgical History Surgery Procedure, Year, and Place: 1997 HIATAL HERNIA REPAIR, [id number] RIGHT ELBOW TENNIS ELBOW SURGERY, [id number] LEFT KNEE ACL RECONSTRUCTION, [facility], rt thumb joint fusion 2013 and hardware removal in 2013 Hx Anesthesia Reactions: No Infectious Disease History: No Infectious Disease History: Denies: Traveled Outside the [place] in Last 30 Days - Family History Known Family History: Negative: Cardiac Disease, Hypertension, Diabetes - Social History Alcohol Use: Rare Hx Substance Use: No Substance Use Type: Reports: None Hx Tobacco Use: Yes Smoking Status (MU): Former Smoker Type: Cigarettes Amount Used/How Often: 1/2 PACK/DAY Length of Time of Smoking/Using Tobacco: 10 YEARS Have You Smoked in the Last Year: No Review of Systems Positive: Skin Diaphoresis. Negative: Fever, Chills Positive: Palpitations. Negative: Chest Pain - Mild pressure. Negative: Shortness Of Breath Negative: Diarrhea All Other Systems Reviewed And Are Negative: Yes Physical Exam - Summary Physical Exam Summary: The patient is in mild distress. The skin is warm and dry and skin color reflects adequate perfusion. HEENT: The head is normocephalic and atraumatic. The pupils are equal and reactive. The conjunctivae are clear and without drainage. Nares are patent and without drainage. Mouth reveals moist mucous membranes and the throat is without erythema and exudate. Neck is supple with full range of motion and non-tender. There are no carotid bruits. There is no neck vein distension. Respiratory: Chest is non-tender. Lungs are clear to auscultation and breath sounds are symmetrical and equal. Cardiovascular: Heart is irregularly tachycardic. There is no murmur or rub auscultated. There is no peripheral edema and pulses are symmetrical and equal. Abdomen: The abdomen is soft, non-tender, and obese. There are normal bowel sounds heard in all four quadrants. Musculoskeletal: There is no back pain noted. Extremities are non-tender with full range of motion. There is good capillary refill. There is no peripheral edema or calf tenderness elicited. Neurological: Patient is alert and oriented to person, place and time. The patient has symmetrical motor strength in all four extremities. Psychiatric: The patient has an appropriate affect and does not exhibit any anxiety or depression. Triage Information Reviewed: Yes Vital Signs On Initial Exam: Initial Vitals Temp Pulse Resp BP 98.3 F 107 18 137/66 01/14/17 18:58 01/14/17 18:58 01/14/17 18:58 01/14/17 18:58 Vital Signs Reviewed: Yes - [place] Coma Scale Coma Scale Total: 15 Diagnostics - Vital Signs Vital Signs Temp Pulse Resp BP Pulse Ox 01/14/17 19:06 99.4 F 151 20 141/104 98 01/14/17 18:58 98.3 F 107 18 137/66 - Laboratory Lab Results: Lab Results 01/14/17 01/14/17 01/14/17 Range/Units 19:21 19:21 19:21 WBC 13.0 H (3.5-10.8) 10^3/ul RBC 5.31 (4.0-5.4) 10^6/ul Hgb 16.2 (14.0-18.0) g/dl Hct 48 (42-52) % MCV 91 (80-94) fL MCH 31 (27-31) pg MCHC 34 (31-36) g/dl RDW 14 (10.5-15) % Plt Count 186 (150-450) 10^3/ul MPV 8 (7.4-10.4) um3 Neut % (Auto) 70.9 (38-83) % Lymph % (Auto) 17.6 L (25-47) % [place] % (Auto) 10.1 H (1-9) % Eos % (Auto) 1.0 (0-6) % Baso % (Auto) 0.4 (0-2) % Absolute Neuts (auto) 9.2 H (1.5-7.7) 10^3/ul Absolute Lymphs (auto) 2.3 (1.0-4.8) 10^3/ul Absolute Monos (auto) 1.3 H (0-0.8) 10^3/ul Absolute Eos (auto) 0.1 (0-0.6) 10^3/ul Absolute Basos (auto) 0.1 (0-0.2) 10^3/ul Absolute Nucleated RBC 0.01 10^3/ul Nucleated RBC % 0.1 INR (Anticoag Therapy) (0.89-1.11) Sodium 138 (133-145) mmol/L Potassium 4.0 (3.5-5.0) mmol/L Chloride 106 (101-111) mmol/L Carbon Dioxide 24 (22-32) mmol/L Anion Gap 8 (2-11) mmol/L BUN 22 (6-24) mg/dL Creatinine 1.15 (0.67-1.17) mg/dL Est GFR ( Amer) 86.6 (>60) Est GFR (Non-Af Amer) 67.3 (>60) BUN/Creatinine Ratio 19.1 (8-20) Glucose 92 (70-100) mg/dL Lactic Acid 1.1 (0.5-2.0) mmol/L Calcium 9.4 (8.6-10.3) mg/dL Magnesium 2.1 (1.9-2.7) mg/dL Total Bilirubin 0.60 (0.2-1.0) mg/dL AST 26 (13-39) U/L ALT 26 (7-52) U/L Alkaline Phosphatase 45 (34-104) U/L Troponin I 0.05 H* (<0.04) ng/mL B-Natriuretic Peptide ( - 100) pg/mL Total Protein 6.9 (6.4-8.9) g/dL Albumin 4.0 (3.2-5.2) g/dL Globulin 2.9 (2-4) g/dL Albumin/Globulin Ratio 1.4 (1-3) TSH 3.04 (0.34-5.60) mcIU/mL Urine Color Urine Appearance Urine pH (5-9) Ur Specific [place] (1.010-1.030) Urine Protein (Negative) Urine Ketones (Negative) Urine Blood (Negative) Urine Nitrate (Negative) Urine Bilirubin (Negative) Urine Urobilinogen (Negative) Ur Leukocyte Esterase (Negative) Urine Glucose (Negative) 01/14/17 01/14/17 01/14/17 Range/Units 19:21 19:21 20:23 WBC (3.5-10.8) 10^3/ul RBC (4.0-5.4) 10^6/ul Hgb (14.0-18.0) g/dl Hct (42-52) % MCV (80-94) fL MCH (27-31) pg MCHC (31-36) g/dl RDW (10.5-15) % Plt Count (150-450) 10^3/ul MPV (7.4-10.4) um3 Neut % (Auto) (38-83) % Lymph % (Auto) (25-47) % [place] % (Auto) (1-9) % Eos % (Auto) (0-6) % Baso % (Auto) (0-2) % Absolute Neuts (auto) (1.5-7.7) 10^3/ul Absolute Lymphs (auto) (1.0-4.8) 10^3/ul Absolute Monos (auto) (0-0.8) 10^3/ul Absolute Eos (auto) (0-0.6) 10^3/ul Absolute Basos (auto) (0-0.2) 10^3/ul Absolute Nucleated RBC 10^3/ul Nucleated RBC % INR (Anticoag Therapy) 0.93 (0.89-1.11) Sodium (133-145) mmol/L Potassium (3.5-5.0) mmol/L Chloride (101-111) mmol/L Carbon Dioxide (22-32) mmol/L Anion Gap (2-11) mmol/L BUN (6-24) mg/dL Creatinine (0.67-1.17) mg/dL Est GFR ( Amer) (>60) Est GFR (Non-Af Amer) (>60) BUN/Creatinine Ratio (8-20) Glucose (70-100) mg/dL Lactic Acid (0.5-2.0) mmol/L Calcium (8.6-10.3) mg/dL Magnesium (1.9-2.7) mg/dL Total Bilirubin (0.2-1.0) mg/dL AST (13-39) U/L ALT (7-52) U/L Alkaline Phosphatase (34-104) U/L Troponin I (<0.04) ng/mL B-Natriuretic Peptide 65 ( - 100) pg/mL Total Protein (6.4-8.9) g/dL Albumin (3.2-5.2) g/dL Globulin (2-4) g/dL Albumin/Globulin Ratio (1-3) TSH (0.34-5.60) mcIU/mL Urine Color Straw Urine Appearance Clear Urine pH 6.0 (5-9) Ur Specific [place] 1.006 L (1.010-1.030) Urine Protein Negative (Negative) Urine Ketones Trace H (Negative) Urine Blood Negative (Negative) Urine Nitrate Negative (Negative) Urine Bilirubin Negative (Negative) Urine Urobilinogen Negative (Negative) Ur Leukocyte Esterase Negative (Negative) Urine Glucose Negative (Negative) Result Diagrams: 01/14/17 19:21 01/14/17 19:21 Diagnostic Studies Comment: Trop: 0.05 Lab Statement: Any lab studies that have been ordered have been reviewed, and results considered in the medical decision making process. - EKG 1901 EKG Interpretation: A Fib @ 153 bpm with rapid ventricular response. Course/Dx - Course Course Of Treatment: 51 y/o M presents with palpitations since 1700 today. He reports diaphoresis and mild pressure in chest (described like a touching sensation), but denies CP, SOB, fever, chills, or diarrhea. Pt received Cardizem , Diltiazem, and fluids in ED course. EKG shows A Fib @ 153 bpm with rapid ventricular response. Pt will be admitted. - Diagnoses Differential Diagnosis/HQI/PQRI: Positive: Hypokalemia, Other - atrial fibrillation with rvr Provider Diagnoses: Atrial fibrillation with rapid ventricular response - Physician Notifications Discussed Care Of Patient With: Ismael Moser Time Discussed With Above Provider: 20:08 Instructed by Provider To: Admit As Inpatient Admit/Transition Orders Completed By ED Provider: Yes - Critical Care Time Critical Care Time: 30-74 min - 30 minutes Discharge - Discharge Plan Condition: Stable Disposition: ADMITTED TO [facility] The documentation as recorded by the Rakesh cortez Salem accurately reflects the service I personally performed and the decisions made by , Steven Ashford MD.
[2017-01-14] MEDS: Enoxaparin(*) 100 MG/ML SYR SUBCUT SCH (23:05)
--- NOTE | 2017-01-15 05:18 | HP ---
CC: Dr. Nabil Dupont* HISTORY AND PHYSICAL: DATE OF ADMISSION: 01/14/17 PRIMARY CARE PROVIDER: Dr. Nabil Dupont. PRIMARY BAKER PIE: Dr. Wren. ATTENDING PHYSICIAN: Dr. Ismael Moser *(dictated by Elsie Rendon NP ) CHIEF COMPLAINT: Chest discomfort with tachycardia. HISTORY OF PRESENT ILLNESS: Mr. Coates is a 51-year-old male with past medical history significant for paroxysmal atrial fibrillation, hyperlipidemia, and obstructive sleep apnea who presented to the emergency room with complaints of chest discomfort and tachycardia. Mr. Coates has a known paroxysmal atrial fibrillation and had just worked out for the first time in 3 months today at [facility]. When he felt, his heart rate had increased and felt as though he was in atrial fibrillation. This is the patient's 5th episode since 2007. The patient's last episode was in November of this year just over a month ago at which time, the patient had been outside all day. It was felt that this may have been caused by dehydration. The episode prior to that was in October of this year , at which time the patient had had ice cold water and similar symptoms. The two episodes prior to that were in 2007 and 2014. The episode in 2014 was also felt to be secondary to dehydration, abnormal electrolytes and stress. On the patient's last admission a month ago, after being placed on a Cardizem drip, he converted to sinus rhythm. The patient had once previously needed cardioversion. The patient reports staying hydrated today in preparation for his workout. He denies any recent cold symptoms such as fever or chills. He denies any shortness of breath. He reports a slight chest discomfort. He denies any urinary symptoms, recent sick contacts. The patient's baseline heart rate is around 50. His grants officer has not adjusted his medications at his last followup visit. During the patient's October admission, he had an exercise stress test that showed no abnormalities and was a low risk. The patient denies any alcohol, tobacco, or recreational drug use. He denies drinking caffeinated beverages such as coffee or tea or soda. Due to concern that he was back in an atrial fibrillation, he decided to present to the emergency room for further evaluation of his symptoms. While in the emergency room, the patient received an IV bolus of diltiazem and was started on an IV diltiazem drip. The patient again on this admission reported development of increased chest discomfort with the initial bolus of diltiazem that resolved after the bolus was given. The patient was reporting his chest discomfort as a pressure like somebody was touching his skin. He denied any associated shortness of breath. During his time in the emergency room, he had an EKG showing atrial fibrillation with a rate of 153. The patient had labs checked. His electrolytes were at goal with a potassium of 4.0 and magnesium of 2.1. The patient was noted to have a troponin of 0.05. He had an elevated white blood cell count of 13. He had a negative urinalysis. The Hospitalists were asked to evaluate this patient for admission. Upon my assessment discussing the patient's possible need for cardioversion, he had initially been noted to have heart rates in the one-teens to 120s. After this discussion, the patient's heart rate increased up to the 120s to 140s. The patient also developed increased chest discomfort rating his pain at 4/10. He was administered a sublingual nitro. The patient continued to be anxious and complained of increased chest pain with pain radiating into his abdomen. An order was given for IV morphine. The patient's heart rate decreased down to the 100s. PAST MEDICAL HISTORY: 1. Paroxysmal atrial fibrillation. 2. Hyperlipidemia. 3. Obstructive sleep apnea, uses CPAP nightly at home. PAST SURGICAL HISTORY: 1. Status post posterior tibial tendon repair. 2. Status post left thumb surgery in 2015 with a trapezial resection. 3. Status post hiatal hernia repair in 1995. 4. Status post tennis elbow surgery in 1999. 5. Status post left knee ACL and MCL reconstruction in 1983. 6. Status post right thumb joint fusion in 2013 and 2012. HOME MEDICATIONS: Include: 1. Diltiazem 120 mg oral daily at bedtime. 2. Albuterol 1 puff inhalation every 6 hours as needed for shortness of breath or wheeze. 3. Niacin 1500 mg oral daily at bedtime. 4. Aspirin 325 mg oral daily. 5. Ibuprofen 800 mg oral as needed for pain. ALLERGIES: ENVIRONMENTAL. FAMILY HISTORY: The patient reports his grandparents had a history of heart disease, he is unsure of the details. The patient denies any family history of diabetes mellitus or cancer. SOCIAL HISTORY: The patient is a former smoker. He quit smoking 2 years ago. Prior to that, he was a half a pack a day smoker for approximately 10 years. The patient occasionally drinks alcoholic beverages. He denies recreational drug use. 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 He lives with his significant other, Rhea Knapp, who will be his surrogate decision maker in the event he is unable to make decisions for himself. REVIEW OF SYSTEMS: I performed a 14-point review of systems. All the pertinent positives and negatives are mentioned in the history of present illness. The remaining review of systems are negative. PHYSICAL EXAMINATION GENERAL APPEARANCE: The patient is alert, pleasant, appears to be in no acute distress. VITAL SIGNS: Temperature 99.4, heart rate 92, respiratory rate 18, O2 sat 98% on 2 L via nasal cannula, blood pressure 141/104. HEENT: Normocephalic, atraumatic. Pupils are equal and reactive to light. Extraocular movements are intact. RESPIRATORY: There is no accessory muscle use and the lungs are clear to auscultation bilaterally. CARDIOVASCULAR: Irregularly irregular rate and rhythm. S1 and S2 are present. There are no murmurs, rubs, or gallops heard. ABDOMEN: Soft, nontender, nondistended. There are bowel sounds present x4. EXTREMITIES: There is no lower extremity edema. DP and PT pulses are 2+ and symmetric. MUSCULOSKELETAL: There is no clubbing or cyanosis noted. The patient exhibits good strength in all extremities. NEUROLOGICAL: The patient is alert and oriented x4. Cranial nerves II through XII are grossly intact. PSYCHOLOGICAL: The patient is mostly calm and cooperative, but anxious. SKIN: There are no rashes or abnormalities seen. DIAGNOSTIC STUDIES/LAB DATA: Sodium 138, potassium 4.0, chloride 106, CO2 24, BUN 22, creatinine 1.15, glucose 92. Troponin 0.05, magnesium 2.1. TSH 3.04. White blood cell count 13.0, hemoglobin 16.2, hematocrit 48, and platelet count 186. EKG shows atrial fibrillation with a rapid ventricular response at a rate of 153. This EKG is similar to previous EKG from 12/05/16 and 11/02/16. IMPRESSION: Mr. Coates is a 51-year-old male with past medical history significant for paroxysmal atrial fibrillation, hyperlipidemia, and obstructive sleep apnea who presented to the hospital today with concerns of chest discomfort that he associated with being in atrial fibrillation. He was found to be in atrial fibrillation with rapid ventricular response. He will be admitted as an OBV for atrial fibrillation with rapid ventricular response. ASSESSMENT AND PLAN: 1. Atrial fibrillation with rapid ventricular response. The patient continues to be in atrial fibrillation with rapid ventricular response. He received a diltiazem bolus and had been started on a diltiazem drip. Orders have been written for the drip to be titrated in 2.5 increments based on the patient's heart rate. He will be monitored in the ICU. The patient's CHADS2-VASc score is 0. He is on a full dose aspirin at home. In the event that the patient does not convert with the diltiazem drip, he will be given Lovenox b.i.d. so that he is anticoagulated for possible cardioversion. Again, this is the patient's 5th episode of atrial fibrillation since 2007, but his 3rd episode since October of this year. Overall, there does not seem to be a consistent trigger in the patient's episodes, although often stress and dehydration appeared to be a common denominator. The patient's electrolyte goals will be potassium greater than 4 and magnesium greater than 2. We will recheck his electrolytes in the morning and replace as needed. If the patient does not convert, we will ask Cardiology to consult on the patient. He may benefit from seeing an film maker as an outpatient as his episodes appear to be more frequent and he is symptomatic. 2. Chest discomfort. The patient again developed chest discomfort on this day with the diltiazem push. The patient then developed some more chest discomfort when he was notably stressed after discussing the possibility of needing a cardioversion. I suspect the patient's chest discomfort is likely stress related and related to his atrial fibrillation. He received a nitro and morphine with some improvement in his chest discomfort. The patient is noted to have an elevated troponin at 0.05. I suspect this is demand ischemia related to rate. We will continue to trend his troponin. When he was here in October of this year, he had a low risk stress test. For now, we are going to hold off on repeating a stress test. The patient has not had an echocardiogram since September of 2014. At that time, there were no significant findings. For now , I am going to hold off on an echocardiogram. 3. Leukocytosis. The patient denies any cold symptoms. He is afebrile. It is unclear if this is just a stress response. His urinalysis is negative. We will recheck his white count in the morning. For now, I am going to hold off on any antibiotics. 4. Hyperlipidemia. The patient will be continued on his home niacin. 5. Obstructive sleep apnea. The patient is going to use oxygen tonight and if he is going to stay longer, his significant other will bring in his home CPAP as he does not like the hospital provided CPAP. 6. Fluids, electrolytes, and nutrition. The patient will be on a heart- healthy diet. 7. Code status. Full code. 8. DVT prophylaxis. He is at moderate risk. He has been placed on full dose anticoagulation with Lovenox. 9. Disposition. Observation for atrial fibrillation with rapid ventricular response. TIME SPENT: Time for this admission was 60 minutes, greater than half the time was spent [id number] with the patient and significant other discussing medications, past medical history and the events leading up to his arrival today and performing a physical examination. The case has been reviewed with the attending, Dr. Moser, who agrees with the plan of care. Reviewed by TRINIDAD BENITEZ 01/17/17 1510 [id number]/[facility] #: [id number] ANDRES
[2017-01-15 05:51] LABS: Hematocrit 48 % (42-52); Hemoglobin 16.3 g/dl (14.0-18.0); Mean Corpuscular HGB Conc 34 g/dl (31-36); Mean Corpuscular Hemoglobin 31 pg (27-31); Mean Corpuscular Volume 91 fL (80-94); Mean Platelet Volume 8 um3 (7.4-10.4); Red Blood Count 5.24 10^6/ul (4.0-5.4); Red Cell Distribution Width 14 % (10.5-15); White Blood Count 8.8 10^3/ul (3.5-10.8)
[2017-01-15 07:06] LABS: BUN/Creatinine Ratio 16.7 (8-20); EGFR African American 106.6 (>60); EGFR Non-African American 82.9 (>60); Magnesium 2.2 mg/dL (1.9-2.7); Potassium 3.9 mmol/L (3.5-5.0)
[2017-01-15] MEDS ORDERED: Aspirin TAB* 325 MG PO SCH (09:00)
[2017-01-15] MEDS ORDERED: Diltiazem CD CAP* 120 MG PO ONE (09:00)
[2017-01-15] MEDS ORDERED: Magnesium Sulf 4 GM/100 ML IV* 4,000 MG/100 ML BAG IVPB ONE (09:15)
[2017-01-15] MEDS: Enoxaparin(*) 100 MG/ML SYR SUBCUT SCH (09:24)
[2017-01-15] MEDS ORDERED: fentaNYL* 50 MCG/ML 2 ML VIAL (100 MCG VIAL) ONE (11:12)
[2017-01-15] MEDS ORDERED: Naloxone* 0.4 MG/ML 1 ML VIAL ONE (11:12)
[2017-01-15] MEDS ORDERED: Flumazenil* 0.1 MG/ML 5 ML MDV ONE (11:12)
[2017-01-15] MEDS ORDERED: Midazolam* 1 MG/ML 5 ML VIAL (5 MG) ONE (11:12)
[2017-01-15 17:07] VITALS: BP 117/65
--- NOTE | 2017-01-15 19:53 | CONS ---
CC: Dr. Nabil Dupont; Dr. Wren * CARDIOLOGY CONSULTATION: DATE OF CONSULT: 01/15/17 INDICATION FOR CONSULT: Atrial fibrillation. HISTORY OF PRESENT ILLNESS: The patient is a 51-year-old gentleman with a history of paroxysmal atrial fibrillation. The patient had his first episode in 2007. He did undergo a cardioversion for atrial fibrillation in 2014. Recently, the patient has been having increasing episodes of atrial fibrillation. The patient was exercising yesterday around 5 o'clock when he noted to go into atrial fibrillation. He came to the emergency room and was admitted overnight. The patient continues to be in atrial fibrillation with minimal symptoms. PAST MEDICAL HISTORY: Significant for paroxysmal atrial fibrillation, hyperlipidemia, obstructive sleep apnea. PAST SURGICAL HISTORY: Hernia repair, elbow surgery, ACL and MCL reconstruction. OUTPATIENT MEDICATIONS: 1. Diltiazem 120 mg a day. 2. Niacin 1500 mg a day. 3. Aspirin 325 a day. ALLERGIES: No known drug allergies. FAMILY HISTORY: Grandparents had a history of heart disease, no history of arrhythmias. SOCIAL HISTORY: He is a previous smoker. He quit two years ago. 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 He is . PHYSICAL EXAM: Vital Signs: Height 5'5", weight 219 pounds. Heart rate 103, blood pressure 114/69, respiratory rate 19, oxygen saturation 97 percent on room air, temperature 98.8. HEENT: Sclerae anicteric. Oropharynx is pink without erythema. Neck: Carotids are 2+ without bruits. JVD is normal. Thyroid is normal. Cardiac: S1, S2 without any murmurs, rubs or gallops. Lungs: Clear auscultation bilaterally. There is no dullness to percussion. Abdomen: Soft, nontender, nondistended with normoactive bowel sounds. Extremities: No edema. He has 2+ pulses throughout. Neuro: The patient is awake, alert and oriented. He moves all four extremities equally. DIAGNOSTIC STUDIES/LAB DATA: CBC within normal limits. Chemistry is within normal limits. BUN 16, creatinine 0.96, TSH 3, AST and ALT within normal limits. Troponins are mildly elevated at 0.08. The patient did undergo an exercise stress test in October of 2016. At that time he had excellent exercise capacity. No EKG changes. He had an echocardiogram done in November of 2016 which showed normal LV size and systolic function. No significant valvular abnormalities. IMPRESSION: This is a 51-year-old gentleman with a history of paroxysmal atrial fibrillation who came to the hospital in atrial fibrillation. He remains in atrial fibrillation this morning. RECOMMENDATION: For now, my recommendation is for the patient to undergo cardioversion. Once the patient is in normal sinus rhythm, he will be discharged from the hospital. It is my recommendation that the patient be discharged on Xarelto 20 mg a day. His aspirin should be decreased to 81 mg a day. The patient will be started on Flecainide 50 mg b.i.d. for maintenance of normal sinus rhythm. The patient will follow-up with Dr. Wren as an outpatient. [id number]/[facility] #: [id number] ANDRES
[2017-01-15] MEDS ORDERED: Niacin ER TAB* 500 MG PO SCH (21:00)
--- NOTE | 2017-01-16 02:56 | CARD ---
CC: Dr. Wren.* CARDIOVERSION NOTE: DATE OF PROCEDURE: 01/15/17 - ROOM #ICU-09 PROCEDURE: Cardioversion. INDICATION: Atrial fibrillation. HISTORY: The patient is a 51-year-old gentleman with a history of paroxysmal atrial fibrillation. The patient went into atrial fibrillation last night at 5 o'clock. He was admitted to the hospital, cardioversion was recommended. DESCRIPTION OF PROCEDURE: The patient was in a fasting state. Informed consent had been obtained prior to the procedure. All labs were reviewed. The patient was given 9 mg of Versed and 25 mcg of Fentanyl for conscious sedation. The patient was cardioverted with a 150 joules of synchronized biphasic energy. The patient converted to normal sinus rhythm. The patient tolerated the procedure well and no complication. The patient will be discharged from the hospital on his usual medications. The patient will be started on Xarelto 20 mg a day and on flecainide 50 mg b.i.d. The patient will followup with Dr. Wren. [id number]/[facility] #: [id number] ANDRES
--- NOTE | 2017-01-16 16:20 | DS ---
CC: Nabil Dupont MD; Dr. Wren * DISCHARGE SUMMARY: DATE OF ADMISSION: 01/14/17 DATE OF DISCHARGE: 01/15/17 PRIMARY CARE PROVIDER: Nabil Dupont MD MOLDER MEAT: Dr. Wren. PRIMARY DIAGNOSIS: Atrial fibrillation with rapid ventricular response. SECONDARY DIAGNOSES: Include: 1. Obstructive sleep apnea, on CPAP. 2. Hyperlipidemia. MEDICATIONS ON DISCHARGE: 1. Aspirin 81 mg daily. 2. Niacin ER 1500 mg at bedtime. 3. Diltiazem XT 120 mg at bedtime. 4. Albuterol HFA 1 puff every 6 hours as needed for shortness of breath. 5. Xarelto 20 mg daily. 6. Flecainide 50 mg daily. PERTINENT PROCEDURES PERFORMED DURING HOSPITAL STAY: DC cardioversion from atrial fibrillation to normal sinus rhythm performed by Dr. Wilkerson on 01/15/17. HISTORY OF PRESENT ILLNESS AND HOSPITAL COURSE: This 51-year-old man with past medical history of atrial fibrillation, presented to the hospital with some sensation of chest discomfort found in atrial fibrillation, rapid ventricular response. The discomfort started while performing CrossFit. This is the third episode in the last 3 months, each has occurred in different types of settings. He is a rare caffeine drinker and a minimal alcohol drinker, neither of which have been increased recently. He was seen in conjunction with cardiology, underwent a DC cardioversion without ELINOR. Patient's knowledge of when the event started was approximately 2 hours prior to presentation. He was started on Xarelto in addition to flecainide during the hospital stay. He will follow up with Dr. Wren on discharge. There were no complications during the patient's hospital stay. At followup, please 1. Evaluate for continued sinus rhythm. 2. Consider referral to electrophysiology as deemed necessary. 3. No other specific labs or vitals that need followup. Reasons to return to the hospital included, but not limited to recurrent or worsening symptoms including chest pain, shortness of breath, palpitations, lightheadedness, loss of consciousness, near loss of consciousness, nausea, vomiting, bleeding from any source, inability to obtain or tolerate medications. Discussed at length with patient and his , they acknowledged understanding. Greater than 45 minutes was spent on this discharge of this patient, greater than half was spent face to face with the patient. [id number]/[facility] #: [id number] [facility]
== END 2017-01-15 16:00 | disposition home or self-care (01) ==
LOC: ED 18:55 → ICU 21:03
PROVIDERS: ADMIT Internal Medicine; ATTEND Internal Medicine
DX: I48.91 Unspecified atrial fibrillation (principal); R07.9 Chest pain, unspecified; D72.829 Elevated white blood cell count, unspecified; G47.33 Obstructive sleep apnea (adult) (pediatric); E78.5 Hyperlipidemia, unspecified; I25.10 Atherosclerotic heart disease of native coronary artery without angina pectoris; E78.00 Pure hypercholesterolemia, unspecified; I49.3 Ventricular premature depolarization; Z79.899 Other long term (current) drug therapy; Z79.82 Long term (current) use of aspirin; Z87.891 Personal history of nicotine dependence
CPT/HCPCS: 36415; 80048; 80053; 81003; 83605; 83735; 83880; 84443; 84484; 85025; 85610; 87641; 92960; 93005; 94760; 96365; 96366; 96367; 96372; 96375; 99291; A9270-GY; G0378; J1650; J2250; J2270; J2310; J3010

== ENCOUNTER 2018-03-12 09:54 | Emergency (ER) | payer BC ==
--- NOTE | 2018-03-12 11:59 | ED ---
Neurological HPI - HPI Summary HPI Summary: The patient is a 52 y/o M presenting to [facility] with a chief complaint of memory loss and confusion starting approximately two months ago after he was diagnosed with Lyme's disease. After he had been diagnosed and started Doxycycline antibiotics, he started showing symptoms of a neurological change. He noticed he has been constantly nauseous throughout the day, and there is no difference in pain with eating or being NPO, but the nausea is worse with stress, fatigue, and movement, such as driving and mowing the lawn. He also reports multiple recent instances where he has forgotten to do things or has gotten confused: 1. Parked a car the other day, got out of the car, forgot to turn car off and left calix in car; 2. Was using a gas grill and left it on after he was done; 3. Went to make a plate of food and put in the microwave but put it in the fridge instead. He states that his overall ability to multi-task has decreased - he used to be able to do many things at once and be organized, but has since not been able to keep track of what he is doing. Pt also notes that his speech has changed where he is unable to speak clearly or articulate what his thoughts are , and this makes him avoid conversations when possible because he gets nervous. He additionally c/o lethargy, weakness, and loss of strength throughout his body. He denies fevers, chills, vomiting, headaches, body aches, joint pain, abd pain, and sleep loss. 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 He had just visited his PCP, Dr. Chapman, yesterday who called the pt and told him to come in today. 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 Hx of HTN and Afib (takes Xarelto). He denies SI, but reports that he may have some symptoms of depression. - History of Current Complaint Chief Complaint: EDNeurologicalDeficit Stated Complaint: CONFUSION/LOSS OF MEMORY Time Seen by Provider: 03/12/18 10:49 Hx Obtained From: Patient Onset/Duration: Sudden Onset, Started weeks ago - in December 2017 after Lyme's dx, Still Present Timing: Sudden Onset Onset Severity: Mild Current Severity: Moderate Neurological Deficit Location: Generalized Pain Intensity: 0 Pain Scale Used: 0-10 Numeric Character: Impaired Speech, Confusion, Lethargy Aggravating: Exertion - movement - driving, mowing lawn, Fatigue, Stress Alleviating: Nothing Associated Signs and Symptoms: Positive: Memory Loss, Confusion, Impaired Speech , Nausea/Vomiting - nausea without vomiting. Negative: Headache, Pain, Decreased Oral Intake, Fever - Additional Pertinent History Primary Care Physician: [id number] - Allergy/Home Medications Allergies/Adverse Reactions: Allergies Allergy/AdvReac Type Severity Reaction Status Date / Time ENVIRONMENTAL/SEASONAL Allergy Mild Sneezing Uncoded 03/12/18 10:26 HAYFEVER IV Magnesium Allergy See Comment Uncoded 03/12/18 10:26 PMH/Surg Hx/FS Hx/Imm Hx Endocrine/Hematology History: Denies: Hx Anemia, Hx Unexplained Bleeding Cardiovascular History: Reports: Hx Coronary Artery Disease - HLD, Hx Hypercholesterolemia, Hx Hypertension - ON MEDS Denies: Hx Aneurysm, Hx Angina, Hx Angioplasty, Hx Auto Implanted Cardiovert Defib, Hx Cardiac Arrest, Hx Cardiomegaly, Hx Congenital Heart Disease, Hx Congestive Heart Failure, Hx Deep Vein Thrombosis, Hx Embolism, Hx Hypotension, Hx Myocardial Infarction, Hx Pacemaker/ICD, Hx Peripheral Vascular Disease, Hx Rheumatic Fever, Hx Syncope, Hx Valvular Heart Disease Comment Only: Other Cardiovascular Problems/Disorders - Afib. Cardioversion. Respiratory History: Denies: Hx Asthma, Hx Chronic Obstructive Pulmonary Disease (COPD) GI History: Reports: Hx Gastroesophageal Reflux Disease - HX BEFORE SURGERY FOR HIATAL HERNIA, Hx Hiatal Hernia - HX OF Musculoskeletal History: Reports: Hx Arthritis - THUMB, Hx Back Problems, Hx Orthopedic Injury, Hx Tendonitis - HX OF RIGHT ELBOW - REPAIRED WITH SURGERY Denies: Hx Bursitis, Hx Congenital Bone Abnormalities, Hx Fibromyalgia, Hx Gout, Hx Osteoporosis, Hx Scoliosis Comment Only: Other Musculoskeletal History - left trapezial resection Sensory History: Reports: Hx Contacts or Glasses - DRIVING GLASSES Denies: Hx Eye Injury - Metal filings in eye, Hx Eye Prosthesis, Hx Glaucoma , Hx Legally Blind, Hx Macular Degeneration, Hx Vision Problem, Hx Deafness, Hx Hearing Aid, Hx Hearing Problem, Other Sensory Impairments Opthamlomology History: Reports: Hx Contacts or Glasses - DRIVING GLASSES Denies: Hx Eye Injury - Metal filings in eye, Hx Eye Prosthesis, Hx Glaucoma , Hx Legally Blind, Hx Macular Degeneration, Hx Vision Problem, Other Sensory Impairments Psychiatric History: Denies: Hx Panic Disorder - Surgical History Surgery Procedure, Year, and Place: 1997 HIATAL HERNIA REPAIR, [id number] RIGHT ELBOW TENNIS ELBOW SURGERY, [id number] LEFT KNEE ACL RECONSTRUCTION, [facility], rt thumb joint fusion 2012 and hardware removal in 2013 Hx Anesthesia Reactions: No - Immunization History Immunizations Up to Date: Yes Infectious Disease History: No Infectious Disease History: Denies: Hx Clostridium Difficile, Hx Hepatitis, Hx Human Immunodeficiency Virus (HIV), Traveled Outside the [place] in Last 30 Days - Family History Known Family History: Negative: Cardiac Disease, Hypertension, Diabetes - Social History Alcohol Use: Rare Hx Substance Use: No Substance Use Type: Reports: None Hx Tobacco Use: Yes Smoking Status (MU): Former Smoker Type: Cigarettes Amount Used/How Often: 1/2 PACK/DAY Length of Time of Smoking/Using Tobacco: 10 YEARS Have You Smoked in the Last Year: No Review of Systems Positive: Other - lethargy. Negative: Fever, Chills Positive: Nausea. Negative: Abdominal Pain, Vomiting Positive: Other - NEGATIVE: body aches, joint pain Neurological: Other - POSITIVE: change in speech - unable to articulate thoughts ; NEGATIVE: sleep loss Positive: Weakness - all over body, loss of strength. Negative: Headache Positive: Depressed - mild symptoms, Other - POSITIVE: nervous; NEGATIVE: SI All Other Systems Reviewed And Are Negative: Yes Physical Exam - Summary Physical Exam Summary: Constitutional: Well-developed, Well-nourished, Alert. (-) Distressed Skin: Warm, Dry HENT: Normocephalic; Atraumatic Eyes: Conjunctiva normal Neck: Musculoskeletal ROM normal neck. (-) JVD, (-) Stridor, (-) Tracheal deviation Cardio: Rhythm regular, rate normal, Heart sounds normal; Intact distal pulses; The pedal pulses are 2+ and symmetric. Radial pulses are 2+ and symmetric. (-) Murmur Pulmonary/Chest wall: Effort normal. (-) Respiratory distress, (-) Wheezes, (-) Rales Abd: Soft. (-) Tenderness, (-) Distension, (-) Guarding, (-) Rebound Musculoskeletal: (-) Edema Lymph: (-) Cervical adenopathy Neuro: Alert, Oriented x3, Strength normal, Cranial nerves II-XII are grossly intact. (-) Dysmetria, (-) Nystagmus, (-) Ataxia by finger to nose testing, (-) Sensory deficit. No neurological deficits noted. GCS: 15 Psych: Mood and affect Normal Triage Information Reviewed: Yes Vital Signs On Initial Exam: Initial Vitals Temp Pulse Resp BP Pulse Ox 98.6 F 69 16 141/73 97 03/12/18 10:03 03/12/18 10:03 03/12/18 10:03 03/12/18 10:03 03/12/18 10:03 Vital Signs Reviewed: Yes - Chris Coma Scale Best Eye Response: 4 - Spontaneous Best Motor Response: 6 - Obeys Commands Best Verbal Response: 5 - Oriented Coma Scale Total: 15 Diagnostics - Vital Signs Vital Signs Temp Pulse Resp BP Pulse Ox 03/12/18 11:13 51 18 115/64 95 03/12/18 10:43 18 139/65 03/12/18 10:13 58 23 143/74 96 03/12/18 10:03 98.6 F 69 16 141/73 97 - Laboratory Result Diagrams: 03/12/18 12:14 03/12/18 12:14 Lab Statement: Any lab studies that have been ordered have been reviewed, and results considered in the medical decision making process. - Radiology Brain MRI Xray Interpretation: No Acute Changes - Normal brain. No abnormal enhancement. No restricted diffusion to suggest acute infarct. ED physician has reviewed this report. Radiology Interpretation Completed By: Radiologist - CT Brain CT CT Interpretation: No Acute Changes - No intracranial mass or hemorrhage is noted. ED physician has reviewed this report. CT Interpretation Completed By: Radiologist - EKG 11:41 Cardiac Rate: Bradycardia - 54 BPM EKG Rhythm: Sinus Rhythm EKG Interpretation: No STEMI. Re-Evaluation - Re-Evaluation First Eval Re-Evaluation Time: 13:00 Change: Unchanged Comment: Patient feels the same. Course/Dx - Course Course Of Treatment: The patient is a 52 y/o M presenting to [facility] with a chief complaint of memory loss and confusion starting approximately two months ago after he was diagnosed with Lyme's disease. After he had been diagnosed and started Doxycycline antibiotics, he started showing symptoms of a neurological change. He noticed he has been constantly nauseous throughout the day, and there is no difference in pain with eating or being NPO, but the nausea is worse with stress, fatigue, and movement, such as driving and mowing the lawn. He also reports multiple recent instances where he has forgotten to do things or has gotten confused: 1. Parked a car the other day, got out of the car, forgot to turn car off and left calix in car; 2. Was using a gas grill and left it on after he was done; 3. Went to make a plate of food and put in the microwave but put it in the fridge instead. He states that his overall ability to multi-task has decreased - he used to be able to do many things at once and be organized, but has since not been able to keep track of what he is doing. Pt also notes that his speech has changed where he is unable to speak clearly or articulate what his thoughts are, and this makes him avoid conversations when possible because he gets nervous. He additionally c/o lethargy, weakness, and loss of strength throughout his body. He denies fevers, chills, vomiting, headaches, body aches, joint pain, abd pain, and sleep loss. 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 He had just visited his PCP, Dr. Chapman, yesterday who called the pt and told him to come in today. 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 Hx of HTN and Afib ( takes Xarelto). He denies SI, but reports that he may have some symptoms of depression. In the ED course, the pt's physical exam shows no findings of neurological deficits. He was administered Zofran and Gadoteridol (for MRI). Lab results show no acute findings. EKG shows sinus bradycardia at [address] is negative. Brain MRI is negative. I discussed the case with Dr. Poole of the neurology service who evaluated the patient in the ER. 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 He recommended outpatient follow-up. Supportive care. I also discussed the patient with infectious disease physician, Dr. Collins, we agreed that emergent lumbar puncture was not indicated in this patient with chronic symptoms. MRI is negative for CVA or lesions. He has a follow-up appointment Dr. Ware. - Differential Dx Differential Diagnoses Neuro: Positive: Other - depression, sleep apnea, thryoid dysfuction, anemia, stroke - Diagnoses Provider Diagnoses: Post-Lyme disease syndrome - Physician Notifications Discussed Care Of Patient With: Perry Poole - Neuro Time Discussed With Above Provider: 15:00 Instructed by Provider To: Other - Consult with Dr. Poole about pt's symptoms. Discharge - Sign-Out/Discharge Documenting (check all that apply): Patient Departure - Patient will be discharged home. - Discharge Plan Condition: Good Disposition: HOME Forms: *Work Release Referrals: Nabil Dupont MD [Primary Care Provider] - 2 Days Haroldo Dorado MD [Medical Doctor] - 2 Days Additional Instructions: Do not operate heavy machinery; if you feel fatigued avoid driving - Billing Disposition and Condition Condition: GOOD Disposition: Home - Attestation Statements Document Initiated by Scribe: Yes Documenting Scribe: Myla Abbott Provider For Whom Eb is Documenting (Include Credential): Raymundo Alex MD Scribe Attestation: IMyla, scribed for Raymundo Alex MD on 03/12/18 at 1653. Scribe Documentation Reviewed: Yes Provider Attestation: The documentation as recorded by the Myla cortez accurately reflects the service I personally performed and the decisions made by me, Raymundo Alex MD
[2018-03-12] MEDS ORDERED: Ondansetron ODT TAB* 4 MG SL ONE (12:23)
--- NOTE | 2018-03-12 12:28 | RAD ---
Indication: Confusion. CT of the brain performed without IV contrast. Ventricular structures are midline. No midline shift is noted. The extraction spaces are unremarkable. There is no evidence of intracranial mass or hemorrhage. No other high or low density lesions are identified. Mastoid air cells and paranasal sinuses are otherwise unremarkable. IMPRESSION: No intracranial mass or hemorrhage is noted.
[2018-03-12 12:29] LABS: ABS Basophils 0 10^3/ul (0-0.2); ABS Eosinophils 0.1 10^3/ul (0-0.6); ABS Monocytes 0.6 10^3/ul (0-0.8); ABS Neutrophils 3.7 10^3/ul (1.5-7.7); ABS Nucleated RBC 0 10^3/ul; Eosinophil % 1.8 % (0-6); Hematocrit 44 % (42-52); Hemoglobin 15.1 g/dl (14.0-18.0); Lymphocyte % 31.4 % (25-47); Mean Corpuscular HGB Conc 34 g/dl (31-36); Mean Corpuscular Hemoglobin 31 pg (27-31); Mean Corpuscular Volume 91 fL (80-94); Mean Platelet Volume 7.9 um3 (7.4-10.4); Nucleated Red Blood Cells % 0.1; Platelet Count 180 10^3/ul (150-450); Red Blood Count 4.85 10^6/ul (4.00-5.40); Red Cell Distribution Width 15 % (10.5-15); White Blood Count 6.5 10^3/ul (3.5-10.8)
[2018-03-12 12:53] LABS: EGFR Non-African American 72.9 (>60)
[2018-03-12 12:59] LABS: Urine Appearance Clear; Urine Blood Negative (Negative); Urine Color Straw; Urine Ketones Negative (Negative); Urine Protein Negative (Negative); Urine Specific Gravity 1.012 (1.010-1.030); Urine Urobilinogen Negative (Negative)
[2018-03-12] MEDS ORDERED: Gadoteridol* (CONTRAST) 279.3 MG/ML 10 ML IV ONE (13:35)
--- NOTE | 2018-03-12 13:49 | RAD ---
HISTORY: WORD FINDING DIFFICULTY, CONFUSION COMPARISONS: Head CT dated March 12, 2018 TECHNIQUE: The following sequences were obtained of the head: Sagittal T1-weighted images, axial T2-weighted images, axial FLAIR images, axial susceptibility weighted images, axial T1-weighted images. Additionally, axial diffusion-weighted images were obtained with calculated apparent diffusion coefficients. Additionally, sagittal, coronal, and axial T1-weighted images were obtained after contrast enhancement with a gadolinium-based intravenous contrast agent. FINDINGS: HEMORRHAGE/INFARCT: There is no hemorrhage or acute infarct. MASSES/SHIFT: There is no mass or shift. EXTRA-AXIAL SPACES/MENINGES: There are no extra-axial fluid collections. SULCI AND VENTRICLES: The sulci and ventricles are normal in size and position for the patient's stated age. CEREBRUM: There are no focal parenchymal abnormalities. BRAINSTEM: There are no focal parenchymal abnormalities. CEREBELLUM: There are no focal parenchymal abnormalities. The cerebellar tonsils are normal in size and position. SELLA: The sella is normal. PINEAL: The pineal region is clear. CP ANGLE/TEMPORAL BONES: The labyrinthine structures are grossly normal. VESSELS: Normal flow-voids are noted within the visualized vertebral vasculature. DIFFUSION ABNORMALITIES: There are no diffusion abnormalities. PARANASAL SINUSES/MASTOIDS: The paranasal sinuses are clear. ORBITS: The orbits are unremarkable. BONES AND SOFT TISSUE: No bone or soft tissue abnormalities are noted. OTHER: There is no abnormal enhancement. IMPRESSION: NORMAL BRAIN. NO ABNORMAL ENHANCEMENT. NO RESTRICTED DIFFUSION TO SUGGEST ACUTE INFARCT
[2018-03-12 17:32] VITALS: BP 138/78
--- NOTE | 2018-03-12 19:38 | CONS ---
NEUROLOGY CONSULTATION NOTE: DATE OF CONSULT: 03/12/18 - EMERGENCY DEPT PRIMARY PROVIDER: Dr. Raymundo Alex. REASON FOR CONSULT: Cognitive decline. CHIEF COMPLAINT: Memory loss. HISTORY OF PRESENT ILLNESS: Mr. Hu Coates is a 52-year-old man who was recently treated for Lyme disease, presents to the emergency room with multiple symptoms of memory loss, lack of concentration, and difficulty to multitask. These symptoms started following diagnosis of Lyme disease. Specifically, the symptoms started while he is on antibiotics treatment. He stated that on , the patient developed symptoms of upper respiratory tract infection, cough, sore throat, and sinus infection. He was treated with erythromycin, for 10 days. December of 2017, the patient was working on setting up an event for [employer] when a few days later he developed fevers, rigors, and generalized aches. He felt like he had the flu. He went to his primary care doctor, who checked him for Lyme disease and he tested positive for IgM immunoblot. I spoke to Dr. Dupont and confirmed this information. The patient tested negative for Lyme in 2016 when he had similar symptoms of fatigue and body aches. The patient stated that he feels his best when he is working out in the gym. According to his though, he is extremely fatigued when he comes home after a workout. Some of the problems over the last few weeks consist of the patient leaving the keys in the car, leaving food in the microwave, and putting objects in the refrigerator that are not supposed to be there. He also had an episode of Loyola's palsy a few days after he started doxycycline in December,. He was on doxycycline for 3 weeks. He had a right facial droop that subsided after 2 weeks. According to his spouse, the right facial droop was unnoticeable. The patient's goal of care today is to find out why he is having these neurocognitive symptoms and what he can do to prevent further worsening of his symptoms. PAST MEDICAL HISTORY: Paroxysmal atrial fibrillation, on aspirin; dyslipidemia ; obstructive sleep apnea, he uses a CPAP machine. MEDICATIONS: 1. Niacin extended release tablets 1500 mg p.o. at bedtime. 2. Rivaroxaban 20 mg p.o. daily. 3. Naproxen 500 mg p.o. b.i.d. 4. Aspirin 325 mg p.o. daily. 5. Lisinopril 5 mg at bedtime. 6. Tikosyn 250 mcg p.o. twice daily. ALLERGIES: IV MAGNESIUM. FAMILY HISTORY: Both parents are alive and healthy. His grandmother suffered from Alzheimer's dementia. SOCIAL HISTORY: The patient is happily . 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 He denied any tobacco use. Interestingly, though that when the patient drinks diet coke and rum, his symptoms of cognitive decline and nausea subside. He has a stepson, who is 18 years old and his 28-year-old son just moved in with him. No stressors at home. REVIEW OF SYSTEMS: A 14-point review of systems was obtained and otherwise negative except for what was mentioned in the HPI. PHYSICAL EXAM: Vitals: Temperature of 98.6, heart rate of 67, respiratory rate of 15, oxygen saturation of 98%, and blood pressure of 143/89. General: Well- nourished, well-developed man, in no acute distress. Head is normocephalic, atraumatic. Conjunctivae/corneas are clear. No scleral icterus. Neck is supple and symmetrical with no carotid bruit. Lungs are clear to auscultation bilaterally with nonlabored breathing. Cardiovascular: Regular rate and rhythm. Normal S1, S2. Extremities: Normal range of motion with no cyanosis. Skin: No skin lesions or laceration. Psych: Affect is broad and normal mood. Neurological Examination: Mental Status: The patient is awake, alert, and oriented to person, place, time, and general circumstances. Speech and language functions were assessed and found to be normal. The patient underwent a [place] cognitive assessment, which he scored at 27/30. He had trouble recalling jakob in red as well as inability to come up with 11 words in 60 seconds, instead he came up with 10 words. Otherwise, he did well on the visual spatial, naming memory, attention. Cranial Nerves: Normal confrontation testing bilaterally. Pupils are mid range and reactive to light. Normal consensual response. Extraocular muscles are intact. There is no ptosis. Sensation is intact on forehead, cheeks, and jaw region bilaterally. There is no facial droop. He is able to hear throughout the history process. Symmetrical palate elevation. Normal strength against resistance. Tongue is symmetrical and midline with no atrophy or fasciculation. Motor: No abnormal movements or pronator drift. Normal bulk and tone. Neck extension is 5. Shoulder range of motion is full. Motor strength is 5/5 in the upper and lower extremities in distal and proximal muscles. Reflexes are 2+ throughout and symmetrical in the brachioradialis, biceps, triceps, patella and ankle bilaterally. Plantar response bilaterally. Sensation is intact to light touch throughout. Normal vibration and proprioception at the great toes. He had 15- second vibration on the right and 16 seconds on the left. Coordination normal kajidv-oz-almc and hzgh-gz-ideq testing with normal rapid alternative movement. Negative Romberg's sign. Gait: Normal, narrow stance and gait. No ataxia. DIAGNOSTIC STUDIES/LAB DATA: Laboratory, imaging, and other diagnostic testing : WBC 6.5, hemoglobin of 15.1, hematocrit of 44, platelet count of 180. Sodium of 139, potassium is 4.4, chloride of 107, creatinine of 1.07, glucose of 101, lactic acid is 0.8. TSH is 1.03, free T4 0.91. Urine negative for pyuria. Tox screen negative. MRI of the brain with and without contrast was completed today on 03/12/18 and was personally reviewed by myself. There is no evidence of any demyelinating disease, T2 hyperintensities, brain tumors, or stroke. ASSESSMENT: Mr. Hu Coates is a pleasant 52-year-old man, who was diagnosed with Lyme disease in December, who presents with multiple neurological complaints, mostly focused on the neurocognitive dysfunction during and following the treatment of Lyme disease. Reassuringly, the patient's neurological examination is unremarkable with no evidence of focal weakness, paresthesias, and scored normal in the [place] cognitive assessment 27/30. He did have an MRI of the brain, which showed no evidence of intracranial disease. 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 The patient was reassured that with time, his condition will improve. I personally reviewed the imaging with the patient as well as discussed the condition in detail. Approximately 10% to 45% of the patients with Lyme disease continue to experience cognitive dysfunction up to 6 to 12 months after the recommended antibiotic treatment. He was treated for a total of 3 weeks. Although, I suspect this is adequate treatment, I do recommend discussing the case with Dr. Dorado from Infectious Disease to see if the patient will need a more prolonged course of antibiotic therapy, which I doubt he needs. I do not think the patient needs a lumbar puncture as his examination was unremarkable today. There is no need to retest him for Lyme as the IgM and IgG can be positive for a few months after the infection. He will not require any neuropathic medication given that lack of paresthesias or pain. At times, I do treat the patients with antidepressant agent such as low dose Lexapro or Zoloft to help elevate the mood and prevent any depression related to his symptoms. What is odd about the case is that when the patient consumes alcohol, which he does not drink alcohol regularly, he feels that his cognitive function completely resolves. I do not recommend increasing the alcohol intake, but this suggested there is not anything possible structure or ongoing infection that would explain alcohol as a temporary treatment. I did recommend the patient to start vitamin B12 supplementation 1000 mcg of cyanocobalamin p.o. for the next 30 days. I have ordered B12 level to be added on to his labs as well as vitamin D to rule out any metabolic causes of possible fatigue. His TSH and free T4 are reassuringly normal. We would be more than happy to follow up with the patient in the outpatient clinic. Someone will contact him with an appointment within the next week. TIME SPENT: I spent a total of 70 minutes, of which 50% was spent obtaining history, examining the patient, and discussing the treatment plan and prognosis with the patient and the primary provider, Dr. Dupont. I will sign off. [id number]/[facility]PS #: [id number] MTDAngelica
== END 2018-03-12 17:20 | disposition home or self-care (01) ==
LOC: ED 09:54
DX: A69.20 Lyme disease, unspecified (principal); R11.0 Nausea; R53.1 Weakness; F32.9 Major depressive disorder, single episode, unspecified; Z87.891 Personal history of nicotine dependence; Z79.82 Long term (current) use of aspirin
CPT/HCPCS: 36415; 70450; 70553; 80053; 80307; 80320; 81003; 82140; 82306; 82607; 83605; 84439; 84443; 85025; 86140; 93005; 99283; A9270-GY; A9579; G0480

== ENCOUNTER 2019-02-17 05:48 | Observation (INO) | payer BC ==
[~2019-02-17 05:48] MED LIST: Buffered Lidocaine 1% SYRIN* 1 ML/SYRINGE INTRADERM ONE
[2019-02-17] MEDS ORDERED: Lactated Ringers 1000 ML Bag* 1,000 ML IV SCH ×2 (06:00→11:00)
[2019-02-17] MEDS ORDERED: Famotidine IV* 10 MG/ML 2 ML (20 mg) IV ONE (06:00)
[2019-02-17] MEDS ORDERED: Famotidine IV* 10 MG/ML 2 ML (20 mg) ONE (06:34)
[2019-02-17] MEDS ORDERED: Buffered Lidocaine 1% SYRIN* 1 ML/SYRINGE INTRADERM ONE (06:34)
[2019-02-17] MEDS ORDERED: ceFAZolin 2 GM in NS PREMIX(*) 2 GM/100 ML BAG IVPB ONE (06:35)
[2019-02-17] MEDS ORDERED: Thrombin 5,000 UNITS* 1 APPLIC KIT - topical use - TOPICAL ONE (07:10)
[2019-02-17] MEDS ORDERED: Lidocaine 1% w EPI 1:200,000* 30 ML VIAL ONE (07:10)
[2019-02-17] MEDS ORDERED: Bacitracin INJECTION* 50,000 UNITS ONE (07:11)
[2019-02-17] MEDS ORDERED: Phenylephrine 10 MG/ML VIAL* 1 ML VIAL ONE (07:15)
[2019-02-17] MEDS ORDERED: fentaNYL* 50 MCG/ML 2 ML VIAL (100 MCG VIAL) ONE ×3 (07:15→11:01)
[2019-02-17] MEDS ORDERED: Midazolam* 1 MG/ML 10 ML VIAL (10 MG) ONE (07:15)
[2019-02-17] MEDS ORDERED: KETAMINE HCL* 50 MG/ML 10 ML VIAL ONE (07:15)
[2019-02-17] MEDS ORDERED: Remifentanil* 2 MG VIAL ONE ×2 (07:15→08:54)
[2019-02-17] MEDS ORDERED: Cisatracurium* 2 MG/ML MDV 5 ML ONE (07:15)
[2019-02-17] MEDS ORDERED: Sodium Chloride 0.9%* 10 ML ONE (07:15)
[2019-02-17] MEDS ORDERED: Propofol* 500 MG/50 ML BTL ONE ×2 (07:15→08:54)
[2019-02-17] MEDS ORDERED: Lidocaine 2% PF * 5 ML VIAL ONE (07:15)
[2019-02-17] MEDS ORDERED: Propofol* 10 MG/ML 20 ML BTL ONE (07:15)
[2019-02-17] MEDS ORDERED: Dexamethasone IV* 4 MG/ML 1 ML (4 MG) ONE (07:15)
[2019-02-17] MEDS ORDERED: Artificial Tear OPHTH.OINT* 3.5 GM ONE (07:22)
[2019-02-17] MEDS ORDERED: Bupivacaine 0.5%* 50 ML VIAL ONE (08:01)
[2019-02-17] MEDS ORDERED: EPHEDrine (Pressors)* 50 MG/ML VIAL ONE (08:29)
[2019-02-17] MEDS ORDERED: Naloxone* 0.4 MG/ML 1 ML VIAL IV PRN (09:26)
[2019-02-17] MEDS ORDERED: DiMENhydriNATE IV* 50 MG/ML VIAL IV PUSH PRN (09:26)
[2019-02-17] MEDS ORDERED: HYDROmorphone INJ1* 1 MG/ML SYRINGE ONE (09:54)
[2019-02-17] MEDS ORDERED: oxyCODONE TAB* 5 MG TAB PO PRN (10:41)
[2019-02-17] MEDS: fentaNYL* 50 MCG/ML 2 ML VIAL (100 MCG VIAL) IV PRN ×4 (10:46→11:19)
--- NOTE | 2019-02-17 13:19 | CONS ---
CC: Dr. Nabil Dupont; Dr. Linton; Dr. Wren * CONSULTATION REPORT: DATE OF CONSULT: 02/17/19 PRIMARY CARE PROVIDER: Dr. Nabil Dupont. REASON FOR CONSULT: Consultation was requested by Dr. Linton for medical treatment and management of patient status post L4-L5 laminectomy. CHIEF COMPLAINT: Left leg pain. HISTORY OF PRESENT ILLNESS: Hu Coates is a 53-year-old male with history of paroxysmal atrial fibrillation who is status post L4-L5 laminectomy and cyst excision performed by Dr. Linton today. Postoperatively, the patient stated that his left leg pain and footdrop that he had for a couple of months now is improving. His postop pain is well controlled. He was seen in the postoperative unit assisted by his female partner. The patient also stated that he just had a surgery for a cyst on his back performed by Dr. Horton on 01/30/19. From the pathology, it was noted to be a follicular cyst. PAST MEDICAL HISTORY: 1. History of paroxysmal atrial fibrillation, status post 2 cardioversions in the past. The last cardioversion was in 2017. The patient also stated that he had atrial fibrillation on 3 other occasions before that, but at that point he was treated with medication only. 2. History of lumbar radiculopathy as mentioned above. 3. History of hypercholesterolemia. 4. 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 PAST SURGICAL HISTORY: 1. History of diaphragmatic hernia repair in 1996. 2. Elbow tendon repair in 2001. 3. Knee reconstruction in 1983. 4. History of left MCP excision and tendon grafting in 2015. MEDICATIONS AT HOME: Include: 1. Oxycodone 1 to 2 tablets on a p.r.n. basis. 2. Flexeril 5 mg 1 to 2 tablets 3 times a day as needed. 3. Amitriptyline 10 mg at bedtime. 4. Naproxen 500 mg on a p.r.n. basis. 5. Niaspan 1000 mg, the patient takes a tablet and a half, which is 1500 mg daily. 6. Tikosyn 250 mcg b.i.d. 7. Lisinopril 5 mg daily. 8. Aspirin 81 mg daily. ALLERGIES: MAGNESIUM ACETATE IV only. FAMILY HISTORY: Father with hypertension and hyperthyroidism. SOCIAL HISTORY: The patient has history of smoking ever since the age of 28. He has been cutting down for several months and his last cigarette was in September 2018. He denies any alcohol or drug use. 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 REVIEW OF SYSTEMS: Please see history of present illness. The patient stated that he had been having chronic lower back pain radiating to his left buttock, left hip, and down his left leg with associated footdrop for the past 2 to 3 months. He feels that his pain is basically not there after the laminectomy performed today. Please also note that he uses CPAP for obstructive sleep apnea. All the remaining 12 systems were reviewed with the patient and were, otherwise, negative. PHYSICAL EXAM: Blood pressure of 162/96, heart rate of 83 and regular, respiratory rate 22, oxygen saturation 100% on room air, temperature of 97.5. General: The patient is a very pleasant 53-year-old male who is in no acute distress. Alert, awake, and oriented x3. HEENT: Head: Atraumatic, normocephalic. Eyes: Pupils are equal, reactive to light and accommodation. Oropharynx is clear. Mucosa moist. Neck: Supple. No JVD. No bruits bilaterally. Cardiovascular: Regular rate and rhythm. No murmur. Respiratory : Clear to auscultation bilaterally. Abdomen: Soft, nontender. Bowel sounds are present in all 4 quadrants. Extremities: There is no edema. Pulses are 2 + bilaterally. No clubbing or cyanosis. Neuro Evaluation: Speech is clear. Cranial nerves II through XII are grossly intact. Motor strength is 5/5 in the bilateral upper extremities. Bilateral lower extremities, right leg is 5/5. Left leg foot dorsiflexion is 4+/5. On evaluation of the skin, the patient's back has a postoperative dressing in place in the lumbar area with no evidence of skin hematoma. The dressing itself is approximately 5 x 5 cm and was not removed for inspection as it was just applied in a sterile fashion intraoperatively. ASSESSMENT AND PLAN: 1. The patient is day 0 postop lumbar laminectomy. That is going to be managed by Dr. Linton and the neurosurgical team. 2. In regards to the patient's hypertension, he is going to be continued on his lisinopril. 3. For his dyslipidemia, the patient is going to be continued on his niacin. 4. In regards to the patient's paroxysmal atrial fibrillation, the patient is going to be continued on his Tikosyn. 5. For DVT prophylaxis, the patient is low risk and ambulation is encouraged. 6. For the patient's obstructive sleep apnea, CPAP from home is going to be continued. Thank you very much for allowing our service to see the patient in consultation. We will see the patient on a daily basis. [id number]/[facility] #: [id number] ANDRES
--- NOTE | 2019-02-17 13:37 | CONSULT ---
Consult Consult: INPATIENT PAIN CONSULTATION Hu Coates is a 53 year old male. He has a medical history of paroxysmal a fib, as well as Lyme disease. In June, he developed the acute onset of back pain radiating down his left leg. He thought it might be from his Lyme so he did not seek an treatment. On October 20, he had a routine physical with his primary care doctor, Dr. Dupont. He told him of the symptoms. He was referred to physical therapy but there was no improvement in his symptoms. He had an MRI of the lumbar spine on December 19, 2018. It showed a 1.9 cm synovial cyst extending from the left facet joint at L4/5. He was referred to DR. Linton. He had trouble walking. He was taken out of work and given Tramadol. The pain continued to worsen. Two weeks ago, he was given Oxycodone 10 mg 4 times a day. He would take one in the morning, one midday and two at bedtime. Today, he was taken to the OR and underwent a L4/5 laminectomy and synovial cyst excision. I am asked to see him in consult. PAST MEDICAL HISTORY: Lyme disease, paroxysmal afib. He has been in sinus for a while on Tikosyn, and is not anticoagulated Allergies Allergy/AdvReac Type Severity Reaction Status Date / Time ENVIRONMENTAL/SEASONAL Allergy Mild Sneezing Uncoded 02/12/19 13:10 HAYFEVER IV Magnesium Allergy See Comment Uncoded 02/12/19 13:10 Current Medications Amitriptyline HCl (Elavil Tab*) 10 mg PO BEDTIME AISHWARYA Aspirin (Aspirin Ec Tab*) 81 mg PO DAILY AISHWARYA Dofetilide (Tikosyn Cap*) 250 mcg PO Q12H AISHWARYA Lactated Ringer's (Lactated Ringers 1000 Ml Bag*) 1,000 mls @ 75 mls/hr IV .per rate AISHWARYA Lisinopril (Prinivil Tab*) 5 mg PO BEDTIME AISHWARYA Niacin (Niaspan Er Cap*) 1,500 mg PO BEDTIME AISHWARYA Oxycodone HCl (Roxycodone Tab*) 10 mg PO Q4H PRN PRN Reason: moderate pain SOCIAL HISTORY: Non smoker (quit 4 years ago) rare drinker. 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 Lives with fiance in a split level house ROS: Last BM saturday night, no SOB or CP Vital Signs Temp Pulse Resp BP Pulse Ox 98.0 F 88 16 140/69 97 02/17/19 13:23 02/17/19 13:23 02/17/19 13:23 02/17/19 13:23 02/17/19 13:23 EXAM: LUNGS: CLear HEART: reg rhythm ABDOMEN: Soft, +BS EXTREMITIES: Normal tone, PPI NEUROLOGIC: A&O, able to move 4 extremities, sensation to LT intact ASSESSMENT: 1. L4/5 laminectomy and synovial cyst resection 2. Sciatica down left leg PLAN: Given that he was taking 40 mg oxycodone a day prior to surgery, he may need 15 mg oxycodone to control his pain. I will write for this. I will write for bowel medications as well. I will follow.
[2019-02-17] MEDS ORDERED: Magnesium Hydroxide LIQ* 30 ML UDC PO PRN (13:48)
--- NOTE | 2019-02-17 13:53 | OP ---
DATE OF SURGERY: 02/17/19 - ROOM #331 DATE OF : 67 SURGEON: Bailey Linton MD. FOOD SCIENCE PROFESSOR: STEPHAINE Perez. The case was done with the assistance of surgical PA because of the complexity of the case. ANESTHESIA: General. PRE-OP DIAGNOSIS: Left L4-5 synovial cyst. POST-OP DIAGNOSIS: Left L4-5 synovial cyst. OPERATIVE PROCEDURE: The patient underwent L4-5 MIS ipsi-contralateral laminectomy with partial medial facetectomy and resection of the synovial cyst. ESTIMATED BLOOD LOSS: 5 cc. COMPLICATIONS: None. SPECIMEN: Possible synovial cyst. INDICATION: The patient is a very pleasant 54-year-old gentleman with complaints of back pain radiating down the left lower extremity. The patient had MRI findings consistent with a large possible synovial cyst at the left L4- 5 with significant mass effect. The patient failed conservative modalities and was offered the option of surgical intervention. After discussing in extent with the patient and his significant other, expectation, limitations, and possible complication of the procedure with complications include but not limited to bleeding infection, risk of injury adjacent structures, paralysis, , need for additional procedures, anesthesia risks, stroke, blindness, cancer, instability, adjacent level disease, pseudoarthrosis, injury to the bladder, bowel or intra-abdominal contents, loss of bladder or bowel control, postoperative hematoma, scar formation, deep venous thrombosis, pulmonary embolism, spinal fluid leak, anesthesia risk, need for prolonged ICU stay, prolonged hospitalization, prolonged rehabilitation, need for tracheostomy or gastrostomy. The patient was agreeable to proceed with surgery and informed consent was obtained. The patient understood that his condition may not improve and in fact may get worse after surgery and that he may need to have additional procedures in the future. He also understood that operative plan may be modified according to intraoperative findings and conditions and that the case may be abandoned or done in more than 1 stages and he may need to require prolonged ICU stay, prolonged hospitalization need for tracheostomy, gastrostomy, or prolonged rehabilitation. The patient understood that he may develop neuropathy. DESCRIPTION OF PROCEDURE: The patient was brought to the operating room and was placed under general anesthesia by anesthesia team. He was carefully positioned prone on the Toy frame on the Francois table. All bony prominences were meticulously padded. His skin was prepped and draped in the standard fashion. After appropriate surgical pause and patient identification. Skin incision was identified with the use of internal fluoroscopic imaging. Of note, the patient had previous surgical scar from recent resection of a sebaceous cyst by Dr. Horton. The skin was infiltrated with local anesthetic. Marcaine was used and #10 surgical blade was used to excise the skin. The incision was carried down to the subcutaneous tissue and the dorsal fascia was then incised with the use of a #10 surgical blade. Over the series of dilators the METRx tubular retractor system was introduced into the wound and was secured in place. Intraoperative fluoroscopic imaging confirmed appropriate surgical level. Surgical time out was performed. Intraoperative microscope was brought into the filed and and the left lamina of the L4, the L4-5 facet and superior lamina of L5 were gently exposed. High-speed drill and Kerrison punch was used to perform a ipsi-contralateral laminectomy at the L4-5 level as well as superior aspect of L5 and a minimal medial facetectomy. The large synovial cyst was identified, adhered to the thecal sac and actually protruding quite significantly into the thecal sac as expected from the preoperative MRI. After meticulous dissection, the synovial cyst was gently dissected free from its attachments to the dura and exposed in cephalic and caudal direction and then was gently removed with use of the pituitary rongeurs. After copious irrigation and meticulous hemostasis and meticulous inspection the dura and nerve root were found to be free of any pressure phenomenon and no residual remnants of the synovial cyst were identified. Then the tubular retractor was gently removed and coagulation was achieved in all steps and Marcaine local anesthetic was injected in the paraspinal musculature. The dorsal fascial defect was approximated with 0 undyed Vicryl suture while the subcutaneous tissue was then approximated with inverted interrupted undyed 2-0 Vicryl sutures. The skin was then covered with Dermabond and sterile sponges. At the end of the procedure all counts were reported to be correct. The patient remained hemodynamically stable throughout the case. Intraoperative electrophysiological monitoring remained stable throughout the case. The patient was then turned supine, was extubated and was transferred to the Recovery in excellent condition. The case was done with the assistance of doreen BROWN because of the complexity of the case. [id number]/[facility] #: [id number] ANDRES
[2019-02-17] MEDS: oxyCODONE TAB* 5 MG TAB PO PRN ×3 (14:34→22:20)
[2019-02-17] MEDS ORDERED: Cyclobenzaprine TAB* 10 MG PO PRN (15:43)
[2019-02-17] MEDS: Dofetilide CAP* 250 MCG PO SCH (18:16)
[2019-02-17] MEDS: Docusate CAP* 100 MG PO SCH (20:30)
[2019-02-17] MEDS ORDERED: Senna TAB 8.6 mg* TAB PO SCH (21:00)
[2019-02-17] MEDS ORDERED: Lisinopril TAB* 5 MG PO SCH (21:00)
[2019-02-17] MEDS ORDERED: Amitriptyline TAB* 10 MG PO SCH (21:00)
[2019-02-17] MEDS ORDERED: Niacin ER CAP* 500 MG CAP.ER PO SCH (21:00)
[2019-02-18] MEDS: oxyCODONE TAB* 5 MG TAB PO PRN (06:02)
[2019-02-18] MEDS: Dofetilide CAP* 250 MCG PO SCH (06:02)
[2019-02-18 07:15] VITALS: BP 115/56
--- NOTE | 2019-02-18 08:24 | PN ---
Progress Note - Progress Note Date of Service: 02/18/19 SOAP: Subjective: 53 y/o male post decompression of left L4/L5 and synovial cyst removal POD # 1. Patient reports that left radicular pain has resolved. He has los able to ambulate independently with out issue. His pain has been well controlled overnight. Overall patient is satisfied with his surgery and has no issues at this time. Objective: Vital Signs - 8 hr 02/18/19 02/18/19 02/18/19 00:54 03:19 06:02 Temperature 98.5 F Pulse Rate 63 Respiratory 16 16 16 Rate Blood Pressure 109/46 (mmHg) O2 Sat by Pulse 100 Oximetry 02/18/19 07 07:14 07:35 Temperature 97.9 F Pulse Rate 66 Respiratory 17 16 Rate Blood Pressure 115/56 (mmHg) O2 Sat by Pulse 97 Oximetry Physical exam: General: Patient standing at bedside, NAD Neuro: GCS 15, A&O x 4 CN II - XII grossly intact, UPE motor strength intact, LE Motor strength intact 5/5 throughout, sensation intact. Derm: Wound C/D/I Assessment: 53 y/o male post left L4/L5 decompression with synovial cyst removal POD #1 recovering well, ready for discharge home. Plan: 1) Discuss discharge instructions with patient 2) Follow up with neurosurgery clinic in 1 week 3) Follow up with PCP in 1 week.
[2019-02-18] MEDS ORDERED: Aspirin EC TAB* 81 MG TAB.EC PO SCH (09:00)
[2019-02-18] MEDS: Docusate CAP* 100 MG PO SCH (09:43)
--- NOTE | 2019-02-18 19:32 | PN ---
Progress Note - Progress Note Date of Service: 02/17/19 Note: Delayed entry. Patient was seen at the afternoon of surgery day. Post op note. Patient tolerated procedure very well. Had transient shoulder pain that resolved Preop LLE pain resolved. Ambulated, Tolerates po well. Voids. Wound s,c,d AAOx3 ,JAYLEN, CN II-XII grossly intact Motor 5/5 Sensory grossly intact to light touch DC planning in am. Shaila Neal MD
== END 2019-02-18 10:35 | disposition home or self-care (01) ==
LOC: OR 05:48 → SSU 12:21
PROVIDERS: ADMIT Neurological Surgery; ATTEND Neurological Surgery
PROC: 01NB0ZZ Release Lumbar Nerve, Open Approach (ICD-10-PCS; principal; 2019-02-17 07:30)
DX: M71.38 Other bursal cyst, other site (principal); M54.16 Radiculopathy, lumbar region; M54.32 Sciatica, left side; I10 Essential (primary) hypertension; I48.0 Paroxysmal atrial fibrillation; E78.00 Pure hypercholesterolemia, unspecified; Z79.82 Long term (current) use of aspirin; Z79.899 Other long term (current) drug therapy; Z87.891 Personal history of nicotine dependence; Z88.8 Allergy status to other drugs, medicaments and biological substances
CPT/HCPCS: 76000; 88304; 96372; A9270-GY; G0378; J0690; J1100; J1170; J2001; J2250; J2704; J3010; J3490

== ENCOUNTER 2019-11-05 13:55 | Emergency (ER) | payer BC ==
[2019-11-05] MEDS ORDERED: Diltiazem IV push/loading dose 5 MG/ML 5 ML vial (25 mg) IV SLOW PU ONE ×2 (14:12→14:46)
[2019-11-05] MEDS ORDERED: NS 0.9% 1000 ML** 1,000 ML IV ONE (14:12)
[2019-11-05 14:27] LABS: ABS Basophils 0.1 10^3/ul (0-0.2); ABS Eosinophils 0.2 10^3/ul (0-0.6); ABS Lymphocytes 2.1 10^3/ul (1.0-4.8); ABS Monocytes 0.7 10^3/ul (0-0.8); ABS Neutrophils 7.3 10^3/ul (1.5-7.7); Eosinophil % 2.2 %; Hematocrit 44 % (42-52); Hemoglobin 15.4 g/dL (14.0-18.0); Lymphocyte % 20.4 %; Mean Corpuscular HGB Conc 35 g/dL (31-36); Mean Corpuscular Hemoglobin 32 pg (27-31); Mean Corpuscular Volume 92 fL (80-94); Platelet Count 199 10^3/uL (150-450); Red Blood Count 4.79 10^6 /uL (4.18-5.48); Red Cell Distribution Width 14 % (10-15); White Blood Count 10.4 10^3/uL (3.5-10.8)
--- NOTE | 2019-11-05 14:34 | ED ---
HPI Cardiac - HPI Summary HPI Summary: 54 year old M presenting to [facility] via private car with a chief complaint of atrial fibrillation per patient. Patient has a PMHx of afib and states that he has been having symptoms for 45 minutes in the lower right side of his chest. Patient states that he hasnt gone into afib since May 2017 when he was prescribed tikosyn. He is also currently taking aspirin. Patient denies having missed any doses in his medications. Patient denies fever, cough, chest pain, diarrhea, vomiting. Patient additionally has a PMHx of sleep apnea. He denies smoking and recreational drug use and occasionally drinks alcohol. 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 He is allergic to IV magnesium. Medications reviewed. Allergies noted. Home Medications Medication Instructions Recorded Confirmed Type Niacin ER CAP* [Niaspan ER CAP*] 1,500 mg PO BEDTIME 12/05/16 02/17/19 History Naproxen [Naproxen Enteric Coated 500 mg PO BID 08/01/17 02/17/19 History 500 MG TAB] Dofetilide CAP* [Tikosyn CAP*] 250 mcg PO BID 08/07/17 02/17/19 History Lisinopril TAB* [Prinivil TAB 5 5 mg PO BEDTIME 08/07/17 02/17/19 History MG*] Amitriptyline TAB* [Elavil TAB*] 10 mg PO BEDTIME 02/12/19 02/17/19 History Aspirin [Aspirin EC] 81 mg PO DAILY 02/12/19 02/17/19 History - History of Current Complaint Chief Complaint: EDDysrhythmPalp Stated Complaint: A FIB PER PT Time Seen by Provider: 11/05/19 14:03 Hx Obtained From: Patient Onset/Duration: Started Minutes Ago - Started 45 minutes ago. Pain Intensity: 0 Pain Scale Used: 0-10 Numeric Chest Pain Location: Right Anterior - Lower right side of chest. Associated Signs and Symptoms: Negative: Chest Pain, Fever, Cough, Vomiting, Other: - Patient denies diarrhea. - Additional Pertinent History Primary Care Physician: [id number] - Allergy/Home Medications Allergies/Adverse Reactions: Allergies Allergy/AdvReac Type Severity Reaction Status Date / Time magnesium AdvReac See Comment Verified 11/05/19 14:23 ENVIRONMENTAL/SEASONAL Allergy Mild Sneezing Uncoded 11/05/19 14:23 HAYFEVER Home Medications: Home Medications Niacin ER CAP* [Niaspan ER CAP*] 1,500 mg PO BEDTIME 12/05/16 [History Confirmed 11/05/19] Naproxen [Naproxen Enteric Coated 500 MG TAB] 500 mg PO BID 08/01/17 [History Confirmed 11/05/19] Dofetilide CAP* [Tikosyn CAP*] 250 mcg PO BID 08/07/17 [History Confirmed ] Lisinopril TAB* [Prinivil TAB 5 MG*] 5 mg PO BEDTIME 08/07/17 [History Confirmed 11/05/19] Amitriptyline TAB* [Elavil TAB*] 25 mg PO DAILY 02/12/19 [History Confirmed ] Aspirin [Aspirin EC] 81 mg PO DAILY 02/12/19 [History Confirmed 11/05/19] PMH/Surg Hx/FS Hx/Imm Hx Endocrine/Hematology History: Denies: Hx Diabetes, Hx Anemia, Hx Unexplained Bleeding Cardiovascular History: Reports: Hx Coronary Artery Disease - HLD, Hx Hypercholesterolemia, Other Cardiovascular Problems/Disorders - ATRIAL FIBRILLATION- LAST CARDIOVERTED 12/2016-NO PROBLEMS SINCE START STEVEN Denies: Hx Aneurysm, Hx Angina, Hx Angioplasty, Hx Auto Implanted Cardiovert Defib, Hx Cardiac Arrest, Hx Cardiomegaly, Hx Congenital Heart Disease, Hx Congestive Heart Failure, Hx Deep Vein Thrombosis, Hx Embolism, Hx Hypotension, Hx Hypertension, Hx Myocardial Infarction, Hx Pacemaker/ICD, Hx Peripheral Vascular Disease, Hx Rheumatic Fever, Hx Syncope, Hx Valvular Heart Disease Respiratory History: Reports: Hx Sleep Apnea Denies: Hx Asthma, Hx Chronic Obstructive Pulmonary Disease (COPD), Other Respiratory Problems/Disorders GI History: Reports: Hx Gastroesophageal Reflux Disease - HX BEFORE SURGERY FOR HIATAL HERNIA, Hx Hiatal Hernia - REPORTS NO MEDICATION FOR- HAD SURGERY FOR 1995 Denies: Other GI Disorders History: Denies: Hx Renal Disease, Other Problems/Disorders Musculoskeletal History: Reports: Hx Arthritis - HANDS, Hx Back Problems, Hx Orthopedic Injury, Hx Tendonitis - HX OF RIGHT ELBOW - REPAIRED WITH SURGERY, Other Musculoskeletal History - 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 Denies: Hx Bursitis, Hx Congenital Bone Abnormalities, Hx Fibromyalgia, Hx Gout, Hx Osteoporosis, Hx Scoliosis Sensory History: Reports: Hx Contacts or Glasses - GLASSES Denies: Hx Eye Injury - Metal filings in eye, Hx Eye Prosthesis, Hx Glaucoma , Hx Legally Blind, Hx Macular Degeneration, Hx Vision Problem, Hx Deafness, Hx Hearing Aid, Hx Hearing Problem, Other Sensory Impairments Opthamlomology History: Reports: Hx Contacts or Glasses - GLASSES Denies: Hx Eye Injury - Metal filings in eye, Hx Eye Prosthesis, Hx Glaucoma , Hx Legally Blind, Hx Macular Degeneration, Hx Vision Problem, Other Sensory Impairments Neurological History: Denies: Other Neuro Impairments/Disorders Psychiatric History: Denies: Hx Panic Disorder - Cancer History Hx Chemotherapy: No Hx Radiation Therapy: No Hx Palliative Cancer Treatment: No - Surgical History Surgery Procedure, Year, and Place: 1983 LEFT KNEE SURGERY- ACL AND MCL [place] [place]. 1995-HIATAL HERNIA REPAIR-[facility] [place]. 1999-RIGHT TENNIS ELBOW SURGERY[place] [facility] [place]. 2012, 2013RIGHT THUMB SURGERY- [facility] JOINT FUSION-[facility] [place]. CARIOVERSION 09/2014 , 12/2016-[facility]. 05/2016-LEFT THUMB SURGERY FOR ARTHRITIS-[facility]. RIGHT THUMB SURGERY FOR ARTHRITIS-[facility]. 01/2019-CYST REMOVED FROM LOWER BACK- [facility]- OFFICE Hx Anesthesia Reactions: No Infectious Disease History: No Infectious Disease History: Denies: Hx Clostridium Difficile, Hx Hepatitis, Hx Human Immunodeficiency Virus (HIV), Traveled Outside the in Last 30 Days - Family History Known Family History: Negative: Cardiac Disease, Hypertension, Diabetes - Social History Alcohol Use: Occasionally Alcohol Amount: SEASONALLY Hx Substance Use: No Substance Use Type: Reports: None Hx Tobacco Use: Yes Smoking Status (MU): Former Smoker Type: Cigarettes Amount Used/How Often: 1 PACK PER WEEK X 25 YEARS Length of Time of Smoking/Using Tobacco: 10 YEARS Have You Smoked in the Last Year: No Review of Systems Negative: Fever Negative: Chest Pain Negative: Cough Negative: Vomiting, Diarrhea All Other Systems Reviewed And Are Negative: Yes Physical Exam - Summary Physical Exam Summary: Constitutional: Well-developed, Well-nourished, Alert. (-) Distressed Skin: Warm, Dry HENT: Normocephalic; Atraumatic Eyes: Conjunctiva normal Neck: Musculoskeletal ROM normal neck. (-) JVD, (-) Stridor, (-) Tracheal deviation Cardio: Irregular HR between 140-160 bpm. Pulmonary/Chest wall: Effort normal. (-) Respiratory distress, (-) Wheezes, (-) Rales Abd: Soft, (-) tenderness, (-) Distension, (-) Guarding, (-) Rebound Musculoskeletal: (-) Edema Lymph: (-) Cervical adenopathy Neuro: Alert, Oriented x3 Psych: Mood and affect Normal Triage Information Reviewed: Yes Vital Signs On Initial Exam: Initial Vitals Temp Pulse Resp BP Pulse Ox 98.9 F 144 20 143/104 98 11/05/19 13:58 11/05/19 13:58 11/05/19 13:58 11/05/19 13:58 11/05/19 13:58 Vital Signs Reviewed: Yes Procedures - Sedation Patient Received Moderate/Deep Sedation with Procedure: Yes Are You The Provider Who Administered The Sedation: Winder of Provider Whom Sedated Patient: Didier Oleary - Additional Procedures Additional Procedures: cardioversion/defib - Cardioversion procedure performed at 1531. Patient was sedated by Dr. Oleary. 100 joule synchronized cardioverison was successful. Diagnostics - Vital Signs Vital Signs Temp Pulse Resp BP Pulse Ox 11/05/19 14:19 108 175/95 97 11/05/19 14:09 96 98 11/05/19 13:58 98.9 F 144 20 143/104 98 - Laboratory Lab Results: Lab Results 11/05/19 Range/Units 14:14 WBC 10.4 (3.5-10.8) 10^3/uL RBC 4.79 (4.18-5.48) 10^6 /uL Hgb 15.4 (14.0-18.0) g/dL Hct 44 (42-52) % MCV 92 (80-94) fL MCH 32 H (27-31) pg MCHC 35 (31-36) g/dL RDW 14 (10-15) % Plt Count 199 (150-450) 10^3/uL MPV 8.0 (7.4-10.4) fL Neut % (Auto) 70.5 % Lymph % (Auto) 20.4 % Hidalgo % (Auto) 6.4 % Eos % (Auto) 2.2 % Baso % (Auto) 0.5 % Absolute Neuts (auto) 7.3 (1.5-7.7) 10^3/ul Absolute Lymphs (auto) 2.1 (1.0-4.8) 10^3/ul Absolute Monos (auto) 0.7 (0-0.8) 10^3/ul Absolute Eos (auto) 0.2 (0-0.6) 10^3/ul Absolute Basos (auto) 0.1 (0-0.2) 10^3/ul Absolute Nucleated RBC 0.0 10^3/ul Nucleated RBC % 0.0 Result Diagrams: 11/05/19 14:14 11/05/19 14:14 Lab Statement: Any lab studies that have been ordered have been reviewed, and results considered in the medical decision making process. - EKG 1405 Summary of EKG Findings: Atrial fibrilation rvr with no obvious ischemic changes. Dr. Rocha has reviewed and interpreted this EKG. 1528 EKG Rhythm: Sinus Tachycardia - Sinus tachycardia with no ischemic changes. This EKG has been reviewed and interpreted by Dr. Rocha. Re-Evaluation - Re-Evaluation First Eval Re-Evaluation Time: 14:47 Comment: Patients HR has changed from 130 bpm to 150 bpm. Patient will be given 20 mg of diltiazem. Second Eval Re-Evaluation Time: 15:00 Comment: Dr. Rocha discussed the care of the patient with Dr. Sandhu. Dr. Sandhu recommended cardioversion procedure for the patient. Third Eval Re-Evaluation Time: 15:55 Comment: Patient was able to ambulate without difficulty. Disposition - Course Course Of Treatment: Patient is here with atrial fibrillation and RVR. Patient had a heart rate is 140-170 while here. Patient was near asymptomatic. Patient was asked multiple times if he was positive at when the symptoms started and he was. Patient had blood or performed which was grossly unremarkable. Patient was given diltiazem 2 with no effect. Cardiology was called and they recommended synchronous cardioversion. Patient had successful synchronized cardioversion, was able to ambulate after sedation, and is discharged with cardiology follow-up - Diagnoses Provider Diagnoses: Atrial fibrillation with RVR - Physician Notifications Discussed Care Of Patient With: Tarik Sandhu Time Discussed With Above Provider: 15:00 Instructed by Provider To: Other - Dr. Rocha discussed the care of the patient with Dr. Sandhu. Dr. Sandhu recommended a cardioversion procedure. - Critical Care Time Critical Care Time: 30-74 min - 45 minutes of critical care time. Critical Care Statement: Critical care time is provided exclusive of any time spent performing procedures. Discharge ED - Sign-Out/Discharge Documenting (check all that apply): Patient Departure - To home. - Discharge Plan Condition: Stable Disposition: HOME Patient Education Materials: A-fib (Atrial Fibrillation) (ED), Moderate Sedation (ED) Referrals: Nabil Dupont MD [Primary Care Provider] - 3 Days Billie Wren MD [Medical Doctor] - 3 Days Additional Instructions: PLEASE RETURN TO EMERGENCY DEPARTMENT IF YOU EXPERIENCE PALPITATIONS, TROUBLE BREATHING, OR ANY OTHER CONCERNING SYMPTOMS. 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 - Billing Disposition and Condition Condition: STABLE Disposition: Home - Attestation Statements Document Initiated by Eb: Yes Documenting Scribe: ramakrishna obando Provider For Whom Eb is Documenting (Include Credential): Luis Rocha MD Scribe Attestation: ramakrishna Carmichael scribed for Luis Rocha MD on 11/05/19 at 1636. Scribe Documentation Reviewed: Yes Provider Attestation: The documentation as recorded by the ramakrishna cortez accurately reflects the service I personally performed and the decisions made by , Luis Rocha MD Status of Scribe Document: Viewed
[2019-11-05 14:45] LABS: Troponin I 0.01 ng/mL (<0.03)
[2019-11-05 15:07] LABS: Albumin 4.3 g/dL (3.2-5.2); Albumin/Globulin Ratio 1.5 (1-3); BUN/Creatinine Ratio 20.4 (8-20); Calcium 9.4 mg/dL (8.6-10.3); EGFR African American 82.1 (>60); EGFR Non-African American 67.9 (>60); Globulin 2.8 g/dL (2-4); Magnesium 1.9 mg/dL (1.9-2.7); Total Bilirubin 0.8 mg/dL (0.2-1.0); Total Protein 7.1 g/dL (6.4-8.9)
[2019-11-05] MEDS ORDERED: Etomidate* 2 MG/ML 10 ML VIAL IV ONE (15:11)
--- NOTE | 2019-11-05 15:15 | ED ---
Procedures - Sedation Patient Received Moderate/Deep Sedation with Procedure: Yes Are You The Provider Who Administered The Sedation: Yes Name of Provider Whom Sedated Patient: Didier Oleary T - 10 mg of Etomidate used. - Procedural Sedation/Analgesia Sedation Course: RT Present, Emergency Airway Equipment Available, Informed Consent Obtained, Time Out Completed, End-tidal Capnography Utilized Adverse Reactions Experienced by Patient: None Mallampati Classification: Class II ASA Classification: Class II: Mild Systemic Disease Pre-Procedural Heart: S1 and S2 Pre-Procedural Lungs: Clear Auscultation Comment/Plan of Care: sedation w etomidate for cardioversion Provider Procedure Attestation: With My Signature Below, I Attest to have Personally Reviewed and Agree with the Pre-Sedation History and Pre-Service Assessment Update Cleared for Moderate Sedation: Yes Pre-Procedural Diagnosis: afib Post-Procedural Diagnosis: afib Procedure: Cardioversion Estimated Blood Loss: None Specimen(s): None Findings: None Implants/Tubes/Drains Placed: None - Additional Procedures Additional Procedures: cardioversion/defib
[2019-11-05 15:40] LABS: Potassium 4.2 mmol/L (3.5-5.0)
[2019-11-05 16:18] VITALS: BP 154/82
== END 2019-11-05 16:15 | disposition home or self-care (01) ==
LOC: ED 13:55
DX: I48.20 Chronic atrial fibrillation, unspecified (principal); I25.10 Atherosclerotic heart disease of native coronary artery without angina pectoris; E78.5 Hyperlipidemia, unspecified; E78.00 Pure hypercholesterolemia, unspecified; K21.9 Gastro-esophageal reflux disease without esophagitis; Z87.891 Personal history of nicotine dependence; Z79.82 Long term (current) use of aspirin
CPT/HCPCS: 36415; 80053; 83735; 83880; 84484; 85025; 93005; 96361; 96374; 96375; 96376; 99283

== ENCOUNTER 2019-11-08 20:00 | Emergency (ER) | payer BC ==
--- NOTE | 2019-11-08 20:40 | ED ---
Palpitations / Dysrhythmia - HPI Summary HPI Summary: Patient complains of sudden onset chest flutters, mild SOB, mild lightheadedness starting at 7:15 PM tonight. Denies fever, cough, sore throat, CP, N/V/D, abdominal pain, change in urine, change in BM. Has history of paroxysmal A. fib, followed by Dr. Wren mutton puncher. Takes Tikosyn and aspirin. Patient was here on 11/04 for same symptoms, required cardioversion after diltiazem failed. Patient has appointment with tomorrow. Medical history is HTN, A. fib. Denies EtOH, recreational drug use. - History of Current Complaint Chief Complaint: EDDysrhythmPalp Time Seen by Provider: 11/08/19 20:39 Hx Obtained From: Patient Onset/Duration: Sudden Onset, Lasting Hours Severity Initially: Mild Severity Currently: Mild Character: Fast, Irregular, Fluttering Aggravating: Nothing Alleviating: Nothing Associated Signs & Symptoms: Lightheadedness, Shortness of Breath - Allergy/Home Medications Allergies/Adverse Reactions: Allergies Allergy/AdvReac Type Severity Reaction Status Date / Time magnesium AdvReac See Comment Verified 11/08/19 20:04 ENVIRONMENTAL/SEASONAL Allergy Mild Sneezing Uncoded 11/08/19 20:04 HAYFEVER Home Medications: Home Medications Niacin ER CAP* [Niaspan ER CAP*] 1,500 mg PO BEDTIME 12/05/16 [History Confirmed 11/05/19] Naproxen [Naproxen Enteric Coated 500 MG TAB] 500 mg PO BID 08/01/17 [History Confirmed 11/05/19] Dofetilide CAP* [Tikosyn CAP*] 250 mcg PO BID 08/07/17 [History Confirmed ] Lisinopril TAB* [Prinivil TAB 5 MG*] 5 mg PO BEDTIME 08/07/17 [History Confirmed 11/05/19] Amitriptyline TAB* [Elavil TAB*] 25 mg PO DAILY 02/12/19 [History Confirmed ] Aspirin [Aspirin EC] 81 mg PO DAILY 02/12/19 [History Confirmed 11/05/19] PMH/Surg Hx/FS Hx/Imm Hx Endocrine/Hematology History: Denies: Hx Diabetes, Hx Anemia, Hx Unexplained Bleeding Cardiovascular History: Reports: Hx Coronary Artery Disease - HLD, Hx Hypercholesterolemia, Other Cardiovascular Problems/Disorders - ATRIAL FIBRILLATION- LAST CARDIOVERTED 12/2016-NO PROBLEMS SINCE START STEVEN Denies: Hx Aneurysm, Hx Angina, Hx Angioplasty, Hx Auto Implanted Cardiovert Defib, Hx Cardiac Arrest, Hx Cardiomegaly, Hx Congenital Heart Disease, Hx Congestive Heart Failure, Hx Deep Vein Thrombosis, Hx Embolism, Hx Hypotension, Hx Hypertension, Hx Myocardial Infarction, Hx Pacemaker/ICD, Hx Peripheral Vascular Disease, Hx Rheumatic Fever, Hx Syncope, Hx Valvular Heart Disease Respiratory History: Reports: Hx Sleep Apnea Denies: Hx Asthma, Hx Chronic Obstructive Pulmonary Disease (COPD), Other Respiratory Problems/Disorders GI History: Reports: Hx Gastroesophageal Reflux Disease - HX BEFORE SURGERY FOR HIATAL HERNIA, Hx Hiatal Hernia - REPORTS NO MEDICATION FOR- HAD SURGERY FOR 1995 Denies: Other GI Disorders History: Denies: Hx Renal Disease, Other Problems/Disorders Musculoskeletal History: Reports: Hx Arthritis - HANDS, Hx Back Problems, Hx Orthopedic Injury, Hx Tendonitis - HX OF RIGHT ELBOW - REPAIRED WITH SURGERY, Other Musculoskeletal History - 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 Denies: Hx Bursitis, Hx Congenital Bone Abnormalities, Hx Fibromyalgia, Hx Gout, Hx Osteoporosis, Hx Scoliosis Sensory History: Reports: Hx Contacts or Glasses - GLASSES Denies: Hx Eye Injury - Metal filings in eye, Hx Eye Prosthesis, Hx Glaucoma , Hx Legally Blind, Hx Macular Degeneration, Hx Vision Problem, Hx Deafness, Hx Hearing Aid, Hx Hearing Problem, Other Sensory Impairments Opthamlomology History: Reports: Hx Contacts or Glasses - GLASSES Denies: Hx Eye Injury - Metal filings in eye, Hx Eye Prosthesis, Hx Glaucoma , Hx Legally Blind, Hx Macular Degeneration, Hx Vision Problem, Other Sensory Impairments EENT History: Denies: Hx Deafness Neurological History: Denies: Hx Dementia, Other Neuro Impairments/Disorders Psychiatric History: Denies: Hx Panic Disorder - Cancer History Hx Chemotherapy: No Hx Radiation Therapy: No Hx Palliative Cancer Treatment: No - Surgical History Surgery Procedure, Year, and Place: 1983 LEFT KNEE SURGERY- ACL AND MCL REPAIR FROM [facility]VA-[facility]. 1995-HIATAL HERNIA REPAIR-[facility]. 1999-RIGHT TENNIS ELBOW SURGERY- [facility]. 2012, 2013RIGHT THUMB SURGERY- [facility] JOINT FUSION-[facility]. CARIOVERSION 09/2014 , 12/2016-[facility]. 05/2016-LEFT THUMB SURGERY FOR ARTHRITIS[facility]. RIGHT THUMB SURGERY FOR ARTHRITIS-[facility]. 01/2019-CYST REMOVED FROM LOWER BACK- [facility]- OFFICE Hx Anesthesia Reactions: No Infectious Disease History: No Infectious Disease History: Denies: Hx Clostridium Difficile, Hx Hepatitis, Hx Human Immunodeficiency Virus (HIV), Traveled Outside the [place] in Last 30 Days - Family History Known Family History: Negative: Cardiac Disease, Hypertension, Diabetes - Social History Alcohol Use: Occasionally Alcohol Amount: SEASONALLY Hx Substance Use: No Substance Use Type: Reports: None Hx Tobacco Use: Yes Smoking Status (MU): Former Smoker Type: Cigarettes Amount Used/How Often: 1 PACK PER WEEK X 25 YEARS Length of Time of Smoking/Using Tobacco: 10 YEARS Have You Smoked in the Last Year: No Review of Systems Constitutional: Negative Eyes: Negative ENT: Negative Positive: Palpitations Positive: Shortness Of Breath Gastrointestinal: Negative Genitourinary: Negative Musculoskeletal: Negative Skin: Negative Neurological/Mental Status: Negative Psychological: Normal All Other Systems Reviewed And Are Negative: Yes Physical Exam Triage Information Reviewed: Yes Vital Signs On Initial Exam: Initial Vitals Temp Pulse Resp BP Pulse Ox 99.7 F 120 16 153/112 99 11/08/19 20:02 11/08/19 20:02 11/08/19 20:02 11/08/19 20:02 11/08/19 20:02 Vital Signs Reviewed: Yes Appearance: Positive: Well-Appearing Skin: Positive: Warm Head/Face: Positive: Normal Head/Face Inspection Eyes: Positive: Normal Neck: Positive: Supple Respiratory/Lung Sounds: Positive: Clear to Auscultation Cardiovascular: Positive: IRR, Tachycardia Abdomen Description: Positive: Nontender Musculoskeletal: Positive: Normal Neurological: Positive: Normal Psychiatric: Positive: Normal AVPU Assessment: Alert - Chris Coma Scale Best Eye Response: 4 - Spontaneous Best Motor Response: 6 - Obeys Commands Best Verbal Response: 5 - Oriented Coma Scale Total: 15 Procedures - Sedation Patient Received Moderate/Deep Sedation with Procedure: No Diagnostics - Vital Signs Vital Signs Temp Pulse Resp BP Pulse Ox 11/08/19 20:02 99.7 F 120 16 153/112 99 - Laboratory Result Diagrams: 11/08/19 21:15 11/08/19 21:15 Lab Statement: Any lab studies that have been ordered have been reviewed, and results considered in the medical decision making process. Course/Dx - Course Course Of Treatment: Patient complains of sudden onset chest flutters, mild SOB , mild lightheadedness starting at 7:15 PM tonight. Denies fever, cough, sore throat, CP, N/V/D, abdominal pain, change in urine, change in BM. Has history of paroxysmal A. fib, followed by Dr. Wren mutton puncher. Takes Tikosyn and aspirin. Patient was here on 11/04 for same symptoms, required cardioversion after diltiazem failed. Patient has appointment with tomorrow. Medical history is HTN, A. fib. Denies EtOH, recreational drug use. Heart rate 120. BP 153/112. Vital signs otherwise within normal limits. Labs within normal limits. EKG A. fib, heart rate in the 141, PVCs. Patient failed to convert to sinus rhythm after diltiazem 20 IV x 2. Discussed patient with mutton puncher Dr. Sandhu who recommended cardioversion, supplementation with IV magnesium, discontinuing aspirin and starting patient on Xarelto. Patient states IV magnesium causes his A. fib to become worse based on experience from two prior cardio conversions. Patient was instead given magnesium oxide 400 mg by mouth here in the ED. Started on Xarelto [address] Sandhu stated patient could be discharged home if successfully cardioverted. Patient was successfully cardioverted at 200J to sinus rhythm with heart rate of 78 Patient has follow-up appointment with mutton puncher Dr. Wren tomorrow. - Diagnoses Provider Diagnoses: A-fib, Encounter for cardioversion procedure - Critical Care Time Critical Care Time: 30-74 min Critical Care Statement: Critical care time is provided exclusive of any time spent performing procedures. Discharge ED - Sign-Out/Discharge Documenting (check all that apply): Patient Departure - Discharge Plan Condition: Stable Disposition: HOME Patient Education Materials: A-fib (Atrial Fibrillation) (ED) Referrals: Nabil Dupont MD [Primary Care Provider] - Additional Instructions: Stop taking aspirin, and take Xarelto instead. Follow up with mutton puncher Dr. Wren at follow up appointment tomorrow. - Billing Disposition and Condition Condition: STABLE Disposition: Home
[2019-11-08] MEDS ORDERED: Diltiazem IV push/loading dose 5 MG/ML 5 ML vial (25 mg) IV SLOW PU ONE ×3 (20:45→21:13)
[2019-11-08] MEDS ORDERED: NS 0.9% 1000 ML** 1,000 ML IV ONE (20:49)
[2019-11-08 21:22] LABS: ABS Eosinophils 0.2 10^3/ul (0-0.6); ABS Lymphocytes 2.1 10^3/ul (1.0-4.8); ABS Monocytes 0.7 10^3/ul (0-0.8); ABS Neutrophils 4.5 10^3/ul (1.5-7.7); Eosinophil % 3.1 %; Hematocrit 43 % (42-52); Hemoglobin 15.1 g/dL (14.0-18.0); Lymphocyte % 27.7 %; Mean Corpuscular HGB Conc 35 g/dL (31-36); Mean Corpuscular Hemoglobin 32 pg (27-31); Mean Corpuscular Volume 91 fL (80-94); Nucleated Red Blood Cells % 0.3; Platelet Count 190 10^3/uL (150-450); Red Blood Count 4.72 10^6 /uL (4.18-5.48); Red Cell Distribution Width 14 % (10-15); White Blood Count 7.6 10^3/uL (3.5-10.8)
[2019-11-08 21:39] LABS: Albumin/Globulin Ratio 1.4 (1-3); BUN/Creatinine Ratio 15.3 (8-20); C Reactive Protein 10.91 mg/L (<8.01); Calcium 9.4 mg/dL (8.6-10.3); EGFR African American 78.1 (>60); EGFR Non-African American 64.6 (>60); Globulin 2.9 g/dL (2-4); Magnesium 1.9 mg/dL (1.9-2.7); Total Bilirubin 0.4 mg/dL (0.2-1.0); Total Protein 6.9 g/dL (6.4-8.9)
[2019-11-08 21:41] LABS: Troponin I 0.01 ng/mL (<0.03)
[2019-11-08] MEDS ORDERED: Propofol* 10 MG/ML 20 ML BTL IV PUSH ONE (21:52)
[2019-11-08 22:15] LABS: TSH (Thyroid Stimulating Horm) 3.78 mcIU/mL (0.34-5.60)
[2019-11-08 22:16] LABS: Potassium 3.9 mmol/L (3.5-5.0)
--- NOTE | 2019-11-08 22:17 | ED ---
ED Procedures - Additional Procedures Additional Procedures: cardioversion/defib Procedures - Sedation Patient Received Moderate/Deep Sedation with Procedure: Yes Are You The Provider Who Administered The Sedation: Yes Name of Provider Whom Sedated Patient: Ronald Beth - Procedural Sedation/Analgesia Sedation Course: Emergency Airway Equipment Available, Informed Consent Obtained , Time Out Completed, End-tidal Capnography Utilized Adverse Reactions Experienced by Patient: None Mallampati Classification: Class II ASA Classification: Class II: Mild Systemic Disease Pre-Procedural Heart: S1 and S2 Pre-Procedural Lungs: Clear Auscultation Comment/Plan of Care: cleared for procedural sedaiton Provider Procedure Attestation: With My Signature Below, I Attest to have Personally Reviewed and Agree with the Pre-Sedation History and Pre-Service Assessment Update Cleared for Moderate Sedation: Yes Pre-Procedural Diagnosis: atrial fibrillation Post-Procedural Diagnosis: atrial fibrillation Procedure: cardioversion Estimated Blood Loss: None Specimen(s): None Findings: None Implants/Tubes/Drains Placed: None
[2019-11-08] MEDS ORDERED: Magnesium Oxide TAB* 400 MG PO ONE (22:32)
[2019-11-08] MEDS ORDERED: Rivaroxaban TAB(*) 20 MG TAB PO SCH (23:00)
[2019-11-08 23:48] VITALS: BP 119/75
== END 2019-11-08 23:50 | disposition home or self-care (01) ==
LOC: ED 20:00
DX: I48.91 Unspecified atrial fibrillation (principal); R06.02 Shortness of breath; R42 Dizziness and giddiness; I10 Essential (primary) hypertension; R00.2 Palpitations; Z87.891 Personal history of nicotine dependence; I25.10 Atherosclerotic heart disease of native coronary artery without angina pectoris; E78.5 Hyperlipidemia, unspecified; E78.00 Pure hypercholesterolemia, unspecified; Z79.82 Long term (current) use of aspirin; Z79.899 Other long term (current) drug therapy
CPT/HCPCS: 36415; 80053; 83735; 84443; 84484; 85025; 86140; 92960; 93005; 96361; 96374; 99285; J2704

== ENCOUNTER 2020-04-27 14:47 | Observation (INO) ==
[2020-04-27] MEDS ORDERED: NS 0.9% 1000 ml BAG 1,000 ML IV ONE (14:58)
[2020-04-27] MEDS ORDERED: Diltiazem IV push/loading dose 5 MG/ML 5 ML vial (25 mg) IV SLOW PU ONE ×2 (15:05→15:27)
[2020-04-27 15:26] LABS: ABS Basophils 0.1 10^3/ul (0-0.2); ABS Eosinophils 0.2 10^3/ul (0-0.6); ABS Lymphocytes 2.5 10^3/ul (1.0-4.8); ABS Monocytes 0.9 10^3/ul (0-0.8); ABS Neutrophils 4.5 10^3/ul (1.5-7.7); Eosinophil % 2.2 %; Hematocrit 48 % (42-52); Hemoglobin 16.7 g/dL (14.0-18.0); Lymphocyte % 30.4 %; Mean Corpuscular HGB Conc 35 g/dL (31-36); Mean Corpuscular Hemoglobin 32 pg (27-31); Mean Corpuscular Volume 92 fL (80-94); Mean Platelet Volume 8.3 fL (7.4-10.4); Nucleated Red Blood Cells % 0.1; Platelet Count 206 10^3/uL (150-450); Red Blood Count 5.21 10^6 /uL (4.18-5.48); Red Cell Distribution Width 14 % (10-15); White Blood Count 8.1 10^3/uL (3.5-10.8)
[2020-04-27 15:50] LABS: Albumin 4.4 g/dL (3.2-5.2); Albumin/Globulin Ratio 1.6 (1-3); BUN/Creatinine Ratio 13.4 (8-20); Calcium 9.6 mg/dL (8.6-10.3); EGFR African American 71.8 (>60); EGFR Non-African American 59.3 (>60); Globulin 2.8 g/dL (2-4); Magnesium 1.9 mg/dL (1.9-2.7); Potassium 4.1 mmol/L (3.5-5.0); Total Bilirubin 0.5 mg/dL (0.2-1.0); Total Protein 7.2 g/dL (6.4-8.9)
[2020-04-27] MEDS ORDERED: Diltiazem (ADVAN VIAL) 100 MG/100 ML ADDV.BAG IV SCH (16:00)
[2020-04-27] MEDS ORDERED: Lorazepam PYXIS KEY PRN (16:54)
[2020-04-27] MEDS ORDERED: LORazepam 2 mg VIAL 1 ml IV PUSH ONE (16:54)
[2020-04-27] MEDS ORDERED: Midazolam 10 mg/10 ml VIAL 1 mg/ml 10 ml VIAL (10 mg) IV SLOW PU ONE (17:09)
[2020-04-27] MEDS ORDERED: fentaNYL 100 mcg/2 ml 50 MCG/ML VIAL IV SLOW PU ONE (17:09)
[2020-04-27] MEDS ORDERED: Magnesium Sulfate IV 1GM/100ML 1 GM/100 ML BAG IV ONE (19:03)
[2020-04-27] MEDS ORDERED: Benztropine 2 mg AMP 1 MG/ML 2 ml AMP SLOW PUSH ONE (19:11)
[2020-04-28 06:42] LABS: ABS Eosinophils 0.2 10^3/ul (0-0.6); ABS Lymphocytes 1.5 10^3/ul (1.0-4.8); ABS Monocytes 0.8 10^3/ul (0-0.8); ABS Neutrophils 4.1 10^3/ul (1.5-7.7); Eosinophil % 2.7 %; Hematocrit 42 % (42-52); Hemoglobin 14.5 g/dL (14.0-18.0); Lymphocyte % 22.6 %; Mean Corpuscular HGB Conc 34 g/dL (31-36); Mean Corpuscular Hemoglobin 32 pg (27-31); Mean Corpuscular Volume 92 fL (80-94); Mean Platelet Volume 8.5 fL (7.4-10.4); Platelet Count 174 10^3/uL (150-450); Red Blood Count 4.57 10^6 /uL (4.18-5.48); Red Cell Distribution Width 13 % (10-15); White Blood Count 6.6 10^3/uL (3.5-10.8)
[2020-04-28 06:59] LABS: BUN/Creatinine Ratio 19.3 (8-20); EGFR African American 85.6 (>60); EGFR Non-African American 70.8 (>60); Potassium 4.5 mmol/L (3.5-5.0)
[2020-04-28 11:27] VITALS: BP 131/60
== END 2020-04-28 13:30 | disposition home or self-care (01) ==
LOC: ED 14:47 → MEDTELE 14:47
PROVIDERS: ADMIT Internal Medicine; ATTEND Internal Medicine

== ENCOUNTER 2021-09-30 19:44 | Observation (INO) ==
[2021-09-30] MEDS ORDERED: NS 0.9% 1000 ml BAG 1,000 ML IV ONE (20:15)
[2021-09-30] MEDS ORDERED: Diltiazem IV push/loading dose 5 MG/ML 5 ML vial (25 mg) IV PUSH ONE (20:15)
[2021-09-30] MEDS ORDERED: Diltiazem (ADVAN VIAL) 100 MG/100 ML ADDV.BAG IV SCH ×2 (20:30→20:57)
[2021-09-30 20:38] LABS: ABS Eosinophils 0.2 10^3/ul (0-0.6); ABS Lymphocytes 1.8 10^3/ul (1.0-4.8); ABS Monocytes 0.7 10^3/ul (0-0.8); Eosinophil % 2.7 %; Hematocrit 44 % (42-52); Lymphocyte % 27.4 %; Mean Corpuscular HGB Conc 34 g/dL (31-36); Mean Corpuscular Hemoglobin 31 pg (27-31); Mean Corpuscular Volume 90 fL (80-94); Mean Platelet Volume 7.9 fL (7.4-10.4); Platelet Count 200 10^3/uL (150-450); Red Blood Count 4.85 10^6 /uL (4.18-5.48); Red Cell Distribution Width 14 % (10-15); White Blood Count 6.7 10^3/uL (3.5-10.8)
[2021-09-30 21:01] LABS: Albumin/Globulin Ratio 1.5 (1-3); Globulin 2.7 g/dL (2-4); Magnesium 1.9 mg/dL (1.9-2.7); Potassium 3.9 mmol/L (3.5-5.0); Total Bilirubin 0.4 mg/dL (0.2-1.0); Total Protein 6.7 g/dL (6.4-8.9); eGFR CKD-EPI 59.2 (>60)
[2021-09-30 21:13] LABS: TSH Ultra Thyroid Stim Horm 2.34 mcIU/mL (0.34-5.60)
[2021-09-30 22:08] LABS: High Sensitivity Troponin 1 Hr 9 pg/mL (<20)
[2021-09-30] MEDS: Magnesium Sulfate 2 gm BAG 2 GM/50 ML BAG IVPB ONE ×2 (22:37→22:47)
[2021-09-30] MEDS ORDERED: Potassium Chlor 10 meq TAB PO ONE (22:43)
[2021-10-01 05:08] LABS: Calcium 9.3 mg/dL (8.6-10.3); Potassium 4.7 mmol/L (3.5-5.0); eGFR CKD-EPI 69.8 (>60)
[2021-10-01 07:36] LABS: Magnesium 2.1 mg/dL (1.9-2.7)
[2021-10-01] MEDS ORDERED: DULoxetine DR 60 mg CAP PO SCH (09:00)
[2021-10-01 11:41] VITALS: BP 117/60
== END 2021-10-01 13:00 | disposition home or self-care (01) ==
LOC: ED 19:44 → INTOOBSV 22:27 → EDHOLD 22:27 → SUATTDRO 22:27 → MEDTELE 23:44
PROVIDERS: ADMIT Hospitalist; ATTEND Internal Medicine

== ENCOUNTER 2022-09-10 05:36 | Observation (INO) ==
[~2022-09-10 05:36] MED LIST changes: -Buffered Lidocaine 1% SYRIN* 1 ML/SYRINGE INTRADERM ONE; +Naloxone 0.4 mg VIAL 0.4 mg/ml 1 ml VIAL IV PRN; +Ondansetron 4 mg VIAL 2 MG/ML 2 ml VIAL IV PRN
[2022-09-10] MEDS ORDERED: Buffered Lidocaine 1% SYRIN 1 ml INTRADERM ONE (06:00)
[2022-09-10] MEDS ORDERED: Lactated Ringers 1000 ml BAG 1,000 ML IV SCH (06:00)
[2022-09-10] MEDS ORDERED: Lidocaine 2% PF 5 ML VIAL ONE ×2 (07:00→07:02)
[2022-09-10] MEDS ORDERED: Propofol 10 MG/ML 20 ML BTL ONE ×2 (07:00→08:19)
[2022-09-10] MEDS ORDERED: Rocuronium 50 mg VIAL 10 mg/ml 5 ml VIAL (50 mg) ONE ×4 (07:01→10:16)
[2022-09-10] MEDS ORDERED: fentaNYL 100 mcg/2 ml 50 MCG/ML VIAL ONE ×2 (07:01→11:54)
[2022-09-10] MEDS ORDERED: Midazolam 2 mg/2 ml VIAL 1 mg/ml 2 ml VIAL (2 mg) ONE (07:01)
[2022-09-10] MEDS ORDERED: Dexamethasone IV 4 MG/ML VIAL 1 ml VIAL ONE ×2 (07:02→08:14)
[2022-09-10] MEDS ORDERED: Bupivacaine 0.5% SDV PF 30ML VIAL ONE (07:02)
[2022-09-10] MEDS ORDERED: ceFAZolin 2 GM in NS PREMIX 2 GM/100 ML BAG IVPB ONE (07:03)
[2022-09-10] MEDS ORDERED: Vancomycin 1,000 MG VIAL ONE (07:04)
[2022-09-10] MEDS ORDERED: Phenylephrine 40 mcg/mL 10mL (400mcg) SYRINGE ONE (08:08)
[2022-09-10] MEDS ORDERED: Acetaminophen IV 1 GM/100ML 1,000 MG/100 ML BAG IV ONE (08:14)
[2022-09-10] MEDS ORDERED: Ondansetron 4 mg VIAL 2 MG/ML 2 ml VIAL ONE (08:14)
[2022-09-10] MEDS ORDERED: Sugammadex 500 MG/5 ML 5 ml VIAL IV PUSH ONE (10:51)
[2022-09-10] MEDS ORDERED: Magnesium Hydroxide LIQ 30 ML UDC PO PRN (11:55)
[2022-09-10] MEDS ORDERED: Ondansetron ODT 4 mg TAB 4 MG TAB PO PRN (11:55)
[2022-09-10] MEDS ORDERED: Polyethylene Glycol 3350 17 GM PACKET PO PRN (11:55)
[2022-09-10] MEDS: fentaNYL 100 mcg/2 ml 50 MCG/ML VIAL IV PRN ×4 (11:55→12:27)
[2022-09-10] MEDS ORDERED: Lactulose 30 ml UDC PO PRN (11:55)
[2022-09-10] MEDS ORDERED: Ondansetron 4 mg VIAL 2 MG/ML 2 ml VIAL IV PRN (11:55)
[2022-09-10] MEDS ORDERED: Morphine 2 MG/ML SYRINGE IV PRN (11:55)
[2022-09-10] MEDS: Lactated Ringers 1000 ml BAG 1,000 ML IV SCH ×2 (13:31→23:26)
[2022-09-10] MEDS ORDERED: ceFAZolin 1 GM ADVAN 1 GM in NS 0.9% 50 ML 50 ML IVPB SCH (16:00)
[2022-09-10] MEDS: ceFAZolin 1 GM in Dextrose 1 GM/50 ML BAG IVPB SCH ×2 (16:03→23:27)
[2022-09-10] MEDS: Magnesium Hydroxide LIQ 30 ML UDC PO SCH (21:46)
[2022-09-11] MEDS: ceFAZolin 1 GM in Dextrose 1 GM/50 ML BAG IVPB SCH (07:12)
[2022-09-11 07:35] LABS: Hematocrit 37 % (42-52); Hemoglobin 12.2 g/dL (14.0-18.0); Mean Platelet Volume 7.6 fL (7.4-10.4); Platelet Count 208 10^3/uL (150-450)
[2022-09-11 07:49] LABS: Calcium 8.6 mg/dL (8.6-10.3); Creatinine, Serum 1.23 mg/dL (0.67-1.17); Magnesium 2.1 mg/dL (1.9-2.7); Potassium 4.8 mmol/L (3.5-5.0); eGFR CKD-EPI 69.3 (>60)
[2022-09-11] MEDS: Magnesium Hydroxide LIQ 30 ML UDC PO SCH (08:08)
[2022-09-11] MEDS ORDERED: Vitamin THERAPEUTIC TAB PO SCH (09:00)
[2022-09-11] MEDS ORDERED: DULoxetine DR 60 mg CAP PO SCH (09:00)
[2022-09-11] MEDS ORDERED: Cholecalciferol (VIT D3) 1,000 unit TAB PO SCH (09:00)
[2022-09-11 11:47] VITALS: BP 125/70
== END 2022-09-11 12:45 | disposition home or self-care (01) ==
LOC: AA 05:36 → INTOOBSV 05:36 → SSU 13:04
PROVIDERS: ADMIT Orthopaedic Surgery; ATTEND Orthopaedic Surgery

== ENCOUNTER 2024-02-05 05:30 | Observation (INO) ==
[~2024-02-05 05:30] MED LIST changes: +fentaNYL 100 mcg/2 ml 50 MCG/ML VIAL IV PRN
[2024-02-05] MEDS ORDERED: Chlorhexidine MOUTHWASH 0.12% 15 ML UDC ONE (05:41)
[2024-02-05] MEDS ORDERED: ceFAZolin 2 GM PREMIX 2 GM/50 ML BAG ONE (05:41)
[2024-02-05] MEDS ORDERED: fentaNYL 250 mcg/5 ml 50 MCG/ML 5 ml VIAL (250 MCG) ONE (07:02)
[2024-02-05] MEDS ORDERED: Midazolam 5 mg/5 ml VIAL 1 mg/ml 5 ml VIAL (5 mg) ONE (07:02)
[2024-02-05] MEDS ORDERED: Propofol 10 MG/ML 20 ML BTL ONE (07:02)
[2024-02-05] MEDS ORDERED: Dexamethasone IV 4 MG/ML VIAL 1 ml VIAL ONE (07:02)
[2024-02-05] MEDS ORDERED: Phenylephrine IV 10 MG/ML 1 ml VIAL ONE (07:02)
[2024-02-05] MEDS ORDERED: Rocuronium 50 mg VIAL 10 mg/ml 5 ml VIAL (50 mg) ONE ×2 (07:02→07:04)
[2024-02-05] MEDS ORDERED: Lidocaine 2% PF 5 ML VIAL ONE (07:02)
[2024-02-05] MEDS ORDERED: Glycopyrrolate IV 0.2 MG/ML 1 ML VIAL ONE (07:02)
[2024-02-05] MEDS ORDERED: Artificial Tear OPHTH.OINT 3.5 GM ONE (07:03)
[2024-02-05 07:10] LABS: Rapid COVID-19 Molecular Undetected (Undetected)
[2024-02-05] MEDS ORDERED: Metoclopramide 5 MG/ML VIAL (10 mg) ONE (09:03)
[2024-02-05] MEDS ORDERED: Dextran 70/Hypromellose Tears Eye Drops 15 ml BTL (for Artificials Tears) BOTH EYES PRN (10:16)
[2024-02-05] MEDS ORDERED: Senna TAB 8.6 mg TAB PO PRN (10:16)
[2024-02-05] MEDS ORDERED: Calcium Carb (TUMS) 500 mg CHEW TAB PO PRN (10:16)
[2024-02-05] MEDS ORDERED: Morphine 2 MG/ML SYRINGE IV PRN (10:16)
[2024-02-05] MEDS ORDERED: Phenol 1.4% Throat Spray BTL MT PRN (10:16)
[2024-02-05] MEDS ORDERED: fentaNYL 100 mcg/2 ml 50 MCG/ML VIAL ONE (10:22)
[2024-02-05] MEDS: fentaNYL 100 mcg/2 ml 50 MCG/ML VIAL IV PRN (10:26)
[2024-02-05] MEDS: Lactated Ringers 1000 ml BAG 1,000 ML IV SCH ×3 (13:05→13:16)
[2024-02-05] MEDS: Scopolamine 1 mg/72hr PATCH TRANSDERM ONE (13:06)
[2024-02-05] MEDS: Acetaminophen IV 1 GM/100ML 1,000 MG/100 ML BAG IV ONE (13:06)
[2024-02-05] MEDS: Buffered Lidocaine 1% SYRIN 1 ml INTRADERM ONE ×2 (13:06→13:07)
[2024-02-05] MEDS: Benzocaine/Menthol LOZ MT PRN (21:49)
[2024-02-06 07:12] LABS: Magnesium 2.2 mg/dL (1.9-2.7); Potassium 4.6 mmol/L (3.5-5.0)
[2024-02-06 10:02] VITALS: BP 111/57
== END 2024-02-06 10:55 | disposition home or self-care (01) ==
LOC: SSU 05:30
PROVIDERS: ADMIT Neurological Surgery; ATTEND Neurological Surgery